=== PATIENT | female | born 1970 | race American Indian/Alaskan Native ===

== ENCOUNTER 2017-03-12 20:34 | Emergency (ER) | payer OTHER ==
[2017-03-12] MEDS ORDERED: TORADOL IM ONE (21:21)
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
[2017-03-12 23:32] VITALS: BP 162/84
== END 2017-03-12 22:57 | disposition home or self-care (01) ==
LOC: ED 20:34
DX: S16.1XXA Strain of muscle, fascia and tendon at neck level, initial encounter (principal); F17.200 Nicotine dependence, unspecified, uncomplicated; I10 Essential (primary) hypertension; V43.61XA Car passenger injured in collision with sport utility vehicle in traffic accident, initial encounter; Y93.89 Activity, other specified; Y99.8 Other external cause status; Y92.488 Other paved roadways as the place of occurrence of the external cause
CPT/HCPCS: 72125; 96372; 99284; J1885

== ENCOUNTER 2017-04-27 17:49 | Emergency (ER) | payer OTHER ==
[2017-04-27] MEDS ORDERED: NACL 0.9% 1000 ML 1,000 ML IV ONE (19:03)
[2017-04-27] MEDS ORDERED: ATIVAN IV ONE (19:37)
[2017-04-27 19:38] LABS: Basophils % (Auto) 0.6 % (0.0-1.8); Eosinophils % (Auto) 2.3 % (0.0-4.3); Hematocrit 34.6 % (30.3-42.9); Hemoglobin 11.3 gm/dl (10.1-14.3); Mean Corpuscular HGB Conc 33 % (30-34); Mean Corpuscular Hemoglobin 24 pg (28-32); Mean Corpuscular Volume 74 fl (79-97); Platelet Count 313 K/mm3 (140-440); Red Blood Count 4.69 M/mm3 (3.65-5.03); White Blood Count 6.9 K/mm3 (4.5-11.0)
[2017-04-27 20:01] LABS: Alanine Aminotransferase 11 units/L (7-56); Albumin 4.4 g/dL (3.9-5); Albumin/Globulin Ratio 1.4 %; Alkaline Phosphatase 61 units/L (35-129); Anion Gap 20 mmol/L; BUN/Creatinine Ratio 21.42; Blood Urea Nitrogen 15 mg/dL (7-17); Calcium 9.6 mg/dL (8.4-10.2); Carbon Dioxide 23 mmol/L (22-30); Chloride 102.7 mmol/L (98-107); Glucose 99 mg/dL (65-100); Potassium 4.4 mmol/L (3.6-5.0); Sodium 141 mmol/L (137-145); Total Protein 7.6 g/dL (6.3-8.2)
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
[2017-04-27 21:14] LABS: Urine Drugs of Abuse Note Disclamer
--- NOTE | 2017-04-27 21:31 | Cat Scan Report ---
FINAL REPORT EXAM: CT HEAD/BRAIN WO CON HISTORY: altered mental status TECHNIQUE: CT head without contrast PRIORS: None. FINDINGS: No acute intra-axial or extra-axial hemorrhage is identified. There is no evidence of midline shift or mass effect. The ventricles and sulci are within normal limits. Chase-white matter differentiation is intact. No acute parenchymal abnormalities seen. Bony calvarium is grossly intact. Visualized portions of the mastoids and paranasal sinuses are unremarkable. IMPRESSION: Negative CT head
--- NOTE | 2017-04-27 21:32 | Cat Scan Report ---
FINAL REPORT EXAM: CT CERVICAL SPINE WO CON HISTORY: syncope global weakness TECHNIQUE: CT cervical spine with reconstructions PRIORS: None. FINDINGS: Vertebral bodies demonstrate normal height and alignment. The disk spaces are within normal limits. The facet joints demonstrate normal alignment. The spinous processes are intact. Craniocervical junction is unremarkable. C1 and C2 are intact. IMPRESSION: Negative CT cervical spine. No acute abnormality seen.
[2017-04-27 21:38] LABS: Bilirubin,Urine NEG (Negative); Blood,Urine NEG (Negative); Ketones,Urine NEG (Negative); Leukocyte Esterase,Urine NEG (Negative); Mucus,Urine 3+ /HPF; Nitrite,Urine NEG (Negative); Protein,Urine <15 mg/dL mg/dL (Negative); Urobilinogen,Urine < 2.0 mg/dL (<2.0)
[2017-04-27] MEDS ORDERED: REGLAN IV ONE (22:29)
[2017-04-27 23:54] VITALS: BP 145/95
== END 2017-04-28 01:13 | disposition short-term general hospital (02) ==
LOC: ED 17:49
DX: R56.9 Unspecified convulsions (principal); R41.82 Altered mental status, unspecified
CPT/HCPCS: 36415; 70450; 72125; 80053; 80307; 81001; 82140; 82550; 84443; 84484; 84702; 85025; 93005; 93010; 96361; 96374; 96375; 99285; G0480; J2060; J2765; J7030; 80320

== ENCOUNTER 2018-10-23 14:53 | Inpatient (IN) | payer OTHER, SELFPAY ==
[2018-10-23] MEDS ORDERED: DILAUDID IV ONE ×2 (15:40→19:33)
[2018-10-23] MEDS ORDERED: PEPCID IV ONE (15:40)
[2018-10-23] MEDS ORDERED: TORADOL IV ONE (15:40)
[2018-10-23] MEDS ORDERED: ZOFRAN IV ONE ×2 (15:40→21:51)
[2018-10-23] MEDS ORDERED: NACL 0.9% 1000 ML 1,000 ML IV ONE ×4 (15:42→21:51)
[2018-10-23 16:18] LABS: Hematocrit 33.2 % (30.3-42.9); Hemoglobin 10.7 gm/dl (10.1-14.3); Mean Corpuscular HGB Conc 32 % (30-34); Mean Corpuscular Volume 71 fl (79-97); Platelet Count 305 K/mm3 (140-440)
[2018-10-23 16:41] LABS: Bacteria,Urine 1+ /HPF (Negative); Bilirubin,Urine NEG (Negative); Blood,Urine SM (Negative); Color,Urine Amber (Yellow); Mucus,Urine FEW /HPF
[2018-10-23 16:44] LABS: Hemolysis Index 1
[2018-10-23 16:44] LABS: Protein,Urine >500 mg/dL (Negative); WBC,Urine > 182.0 /HPF (0.0-6.0)
[2018-10-23] MEDS ORDERED: ROCEPHIN/NS 1 GM/50 ML 1 GM/50 ML BAG IV ONE (16:57)
--- NOTE | 2018-10-23 17:01 | Emergency Department Report ---
ED Abdominal Pain HPI - General Chief Complaint: Abdominal Pain Stated Complaint: ABD PAIN Time Seen by Provider: 10/23/18 15:11 Source: patient Mode of arrival: Ambulatory Limitations: No Limitations - History of Present Illness Initial Comments: 48-year-old female with a past medical history of previous hypertension in the past not currently on meds and previous ovarian cyst surgery presents to the Hospital complaining of right-sided abdominal pain 2 days. Pain is at the right upper quadrant, constant, and stabbing in nature and rated 10/10 inte nsity. Pain is Worse to palpation without alleviating factors. Positive associated nausea and vomiting without reports of diarrhea, hematemesis, hematochezia, melena, or fever. Patient complains of some abdominal pressure when she urinates but no dysuria. Severity scale (0 -10): 10 - Related Data Home Medications Medication Instructions Recorded Confirmed Last Taken Ibuprofen [Motrin 800 MG tab] 800 mg PO QDAY PRN 04/27/17 04/27/17 Unknown Previous Rx's Medication Instructions Recorded Last Taken Type HYDROcodone/APAP 5-325 [[place] 1 each PO Q6HR PRN #8 tablet 03/12/17 Unknown Rx 5-325 mg TAB] Allergies Allergy/AdvReac Type Severity Reaction Status Date / Time No Known Allergies Allergy Verified 12/07/14 20:54 ED Review of Systems ROS: Stated complaint: ABD PAIN Other details as noted in HPI Comment: All other systems reviewed and negative ED Past Medical Hx - Past Medical History Hx Hypertension: Yes Hx Kidney Stones: Yes - Surgical History Additional Surgical History: LEFT OVARIAN CYST SURGERY - Social History Smoking Status: Current Some Day Smoker Substance Use Type: Alcohol - Medications Home Medications: Home Medications Medication Instructions Recorded Confirmed Last Taken Type HYDROcodone/APAP 5-325 [[place] 1 each PO Q6HR PRN #8 tablet 03/12/17 04/27/17 Unknown Rx 5-325 mg TAB] Ibuprofen [Motrin 800 MG tab] 800 mg PO QDAY PRN 04/27/17 04/27/17 Unknown History ED Physical Exam - General Limitations: No Limitations - Other Other exam information: General: Moderate distress secondary to pain Head exam: Atraumatic, normocephalic Eyes exam: Normal appearance, nonicteric sclera ENT: Moist mucous membrane Neck exam: Normal inspection, full range of motion, no meningismus nontender Respiratory exam: Clear to auscultation bilateral, no wheezes, rales, crackles Cardiovascular: Tachycardia regular rhythm Abdomen: Soft, nondistended, right upper quadrant tenderness, with normal bowel sounds, no rebound, or guarding Extremity: Full range of motion normal inspection no deformity Back: Normal Inspection, full range of motion, no tenderness Neurologic: Alert, oriented x3, cranial nerves intact, no motor or sensory deficit Psychiatric: Distress secondary to pain Skin: Warm, dry, intact ED Course Vital Signs 10/23/18 10/23/18 10/23/18 15:15 15:21 16:05 Temperature 98.1 F Pulse Rate 121 H Respiratory 14 19 Rate Blood Pressure 127/78 Blood Pressure 127/78 [Right] O2 Sat by Pulse 99 99 Oximetry 10/23/18 10/23/18 10/23/18 16:06 16:35 16:36 Temperature Pulse Rate Respiratory 19 16 16 Rate Blood Pressure Blood Pressure [Right] O2 Sat by Pulse Oximetry ED Medical Decision Making - Lab Data Result diagrams: 10/23/18 15:55 10/23/18 15:55 Lab Results 10/23/18 10/23/18 10/23/18 Range/Units 15:55 15:55 15:55 WBC 18.9 H (4.5-11.0) K/mm3 RBC 4.70 (3.65-5.03) M/mm3 Hgb 10.7 (10.1-14.3) gm/dl Hct 33.2 (30.3-42.9) % MCV 71 L (79-97) fl MCH 23 L (28-32) pg MCHC 32 (30-34) % RDW 20.0 H (13.2-15.2) % Plt Count 305 (140-440) K/mm3 Add Manual Diff Complete Total Counted 100 Seg Neutrophils % Meeting Facilitator Seg Neuts % (Manual) 77.0 H (40.0-70.0) % Band Neutrophils % 15.0 % Lymphocytes % (Manual) 2.0 L (13.4-35.0) % Reactive Lymphs % (Man) 0 % Monocytes % (Manual) 5.0 (0.0-7.3) % Eosinophils % (Manual) 1.0 (0.0-4.3) % Basophils % (Manual) 0 (0.0-1.8) % Metamyelocytes % 0 % Myelocytes % 0 % Promyelocytes % 0 % Blast Cells % 0 % Nucleated RBC % Not Reportable Seg Neutrophils # Man 14.6 H (1.8-7.7) K/mm3 Band Neutrophils # 2.8 K/mm3 Lymphocytes # (Manual) 0.4 L (1.2-5.4) K/mm3 Abs React Lymphs (Man) 0.0 K/mm3 Monocytes # (Manual) 0.9 H (0.0-0.8) K/mm3 Eosinophils # (Manual) 0.2 (0.0-0.4) K/mm3 Basophils # (Manual) 0.0 (0.0-0.1) K/mm3 Metamyelocytes # 0.0 K/mm3 Myelocytes # 0.0 K/mm3 Promyelocytes # 0.0 K/mm3 Blast Cells # 0.0 K/mm3 WBC Morphology Not Reportable Hypersegmented Neuts Not Reportable Hyposegmented Neuts Not Reportable Hypogranular Neuts Not Reportable Smudge Cells Not Reportable Toxic Granulation Not Reportable Toxic Vacuolation Not Reportable Dohle Bodies Not Reportable Pelger-Huet Anomaly Not Reportable Kareen Rods Not Reportable Platelet Estimate Appears normal Clumped Platelets Not Reportable Plt Clumps, EDTA Not Reportable Large Platelets Few Giant Platelets Not Reportable Platelet Satelliting Not Reportable Plt Morphology Comment Not Reportable RBC Morphology Not Reportable Dimorphic RBCs Not Reportable Polychromasia Not Reportable Hypochromasia 1+ Poikilocytosis Not Reportable Anisocytosis 1+ Microcytosis 1+ Macrocytosis Not Reportable Spherocytes Not Reportable Pappenheimer Bodies Not Reportable Sickle Cells Not Reportable Target Cells Not Reportable Tear Drop Cells Not Reportable Ovalocytes Few Helmet Cells Not Reportable Sepulveda-Nolic Bodies Not Reportable [place] Rings Not Reportable [place] Cells Not Reportable Bite Cells Not Reportable Crenated Cell Not Reportable Elliptocytes Not Reportable Acanthocytes (Spur) Not Reportable Rouleaux Not Reportable Hemoglobin C Crystals Not Reportable Schistocytes Not Reportable Malaria parasites Not Reportable Arian Bodies Not Reportable Hem Pathologist Commnt No VBG pH (7.320-7.420) Sodium 137 (137-145) mmol/L Potassium 5.4 H (3.6-5.0) mmol/L Chloride 99.0 (98-107) mmol/L Carbon Dioxide 17 L (22-30) mmol/L Anion Gap 26 mmol/L BUN 14 (7-17) mg/dL Creatinine < 0.2 L (0.7-1.2) mg/dL Estimated GFR > 60 ml/min BUN/Creatinine Ratio 70 % Glucose 159 H (65-100) mg/dL Lactic Acid (0.7-2.0) mmol/L Calcium 8.7 (8.4-10.2) mg/dL Total Bilirubin < 0.20 (0.1-1.2) mg/dL AST 62 H (5-40) units/L ALT 21 (7-56) units/L Alkaline Phosphatase 90 (35-129) units/L Total Protein 7.8 (6.3-8.2) g/dL Albumin 3.2 L (3.9-5) g/dL Albumin/Globulin Ratio 0.7 % Lipase 3 L (13-60) units/L HCG, Qual Negative (Negative) Urine Color (Yellow) Urine Turbidity (Clear) Urine pH (5.0-7.0) Ur Specific [place] (1.003-1.030) Urine Protein (Negative) mg/dL Urine Glucose (UA) (Negative) mg/dL Urine Ketones (Negative) mg/dL Urine Blood (Negative) Urine Nitrite (Negative) Urine Bilirubin (Negative) Urine Urobilinogen (<2.0) mg/dL Ur Leukocyte Esterase (Negative) Urine WBC (Auto) (0.0-6.0) /HPF Urine RBC (Auto) (0.0-6.0) /HPF U Epithel Cells (Auto) (0-13.0) /HPF Urine Bacteria (Auto) (Negative) /HPF Urine WBC Clumps /HPF Ur Transition Epith Cell /HPF Urine Mucus /HPF 10/23/18 10/23/18 10/23/18 Range/Units 16:13 18:23 18:23 WBC (4.5-11.0) K/mm3 RBC (3.65-5.03) M/mm3 Hgb (10.1-14.3) gm/dl Hct (30.3-42.9) % MCV (79-97) fl MCH (28-32) pg MCHC (30-34) % RDW (13.2-15.2) % Plt Count (140-440) K/mm3 Add Manual Diff Total Counted Seg Neutrophils % Seg Neuts % (Manual) (40.0-70.0) % Band Neutrophils % % Lymphocytes % (Manual) (13.4-35.0) % Reactive Lymphs % (Man) % Monocytes % (Manual) (0.0-7.3) % Eosinophils % (Manual) (0.0-4.3) % Basophils % (Manual) (0.0-1.8) % Metamyelocytes % % Myelocytes % % Promyelocytes % % Blast Cells % % Nucleated RBC % Seg Neutrophils # Man (1.8-7.7) K/mm3 Band Neutrophils # K/mm3 Lymphocytes # (Manual) (1.2-5.4) K/mm3 Abs React Lymphs (Man) K/mm3 Monocytes # (Manual) (0.0-0.8) K/mm3 Eosinophils # (Manual) (0.0-0.4) K/mm3 Basophils # (Manual) (0.0-0.1) K/mm3 Metamyelocytes # K/mm3 Myelocytes # K/mm3 Promyelocytes # K/mm3 Blast Cells # K/mm3 WBC Morphology Hypersegmented Neuts Hyposegmented Neuts Hypogranular Neuts Smudge Cells Toxic Granulation Toxic Vacuolation Dohle Bodies Pelger-Huet Anomaly Kareen Rods Platelet Estimate Clumped Platelets Plt Clumps, EDTA Large Platelets Giant Platelets Platelet Satelliting Plt Morphology Comment RBC Morphology Dimorphic RBCs Polychromasia Hypochromasia Poikilocytosis Anisocytosis Microcytosis Macrocytosis Spherocytes Pappenheimer Bodies Sickle Cells Target Cells Tear Drop Cells Ovalocytes Helmet Cells Sepulveda-Nolic Bodies [place] Rings [place] Cells Bite Cells Crenated Cell Elliptocytes Acanthocytes (Spur) Rouleaux Hemoglobin C Crystals Schistocytes Malaria parasites Arian Bodies Hem Pathologist Commnt VBG pH 7.341 (7.320-7.420) Sodium (137-145) mmol/L Potassium (3.6-5.0) mmol/L Chloride (98-107) mmol/L Carbon Dioxide (22-30) mmol/L Anion Gap mmol/L BUN (7-17) mg/dL Creatinine (0.7-1.2) mg/dL Estimated GFR ml/min BUN/Creatinine Ratio % Glucose (65-100) mg/dL Lactic Acid 1.40 (0.7-2.0) mmol/L Calcium (8.4-10.2) mg/dL Total Bilirubin (0.1-1.2) mg/dL AST (5-40) units/L ALT (7-56) units/L Alkaline Phosphatase (35-129) units/L Total Protein (6.3-8.2) g/dL Albumin (3.9-5) g/dL Albumin/Globulin Ratio % Lipase (13-60) units/L HCG, Qual (Negative) Urine Color [place] (Yellow) Urine Turbidity Cloudy (Clear) Urine pH 5.0 (5.0-7.0) Ur Specific [place] 1.013 (1.003-1.030) Urine Protein >500 (Negative) mg/dL Urine Glucose (UA) Neg (Negative) mg/dL Urine Ketones Tr (Negative) mg/dL Urine Blood Sm (Negative) Urine Nitrite Neg (Negative) Urine Bilirubin Neg (Negative) Urine Urobilinogen 2.0 (<2.0) mg/dL Ur Leukocyte Esterase Lg (Negative) Urine WBC (Auto) > 182.0 H (0.0-6.0) /HPF Urine RBC (Auto) 49.0 (0.0-6.0) /HPF U Epithel Cells (Auto) 8.0 (0-13.0) /HPF Urine Bacteria (Auto) 1+ (Negative) /HPF Urine WBC Clumps 3+ /HPF Ur Transition Epith Cell 6 /HPF Urine Mucus Few /HPF - EKG Data -: EKG Interpreted by Ri EKG shows normal: sinus rhythm, axis (qrs 20), QRS complexes (qrsd 85), ST-T waves (no stemi/t inv) Rate: tachycardia (110) - Radiology Data Radiology results: report reviewed CT abdomen and pelvis IV contrast: Possible acute bilateral pyelonephritis. Mild colonic diverticulosis - Medical Decision Making Diagnosis is bilateral pyelonephritis with sepsis 3 L of normal saline ordered IV Rocephin Dilaudid and Toradol for pain with improvement Venous pH is normal with an anion gap in low bicarbonate with leukocytosis. lactic acid normal hr 110 after pain meds and 1.5 L of NS Patient be admitted for further treatment cultures pending - Differential Diagnosis cholecystitis, renal colic, UTI, pyelonephritis, appendicitis, gastritis Critical Care Time: No Critical care attestation.: If time is entered above; I have spent that time in minutes in the direct care of this critically ill patient, excluding procedure time. ED Disposition Clinical Impression: Pyelonephritis, Sepsis Disposition: OP ADMIT IP TO THIS HOSP Is pt being admited?: Yes Condition: Stable Time of Disposition: 18:53 (dr francois/hosp)
[2018-10-23 17:09] LABS: Anisocytosis 1+; Band Neutrophils # (Manual) 2.8 K/mm3; Basophils % (Manual) 0 % (0.0-1.8); Total Cells Counted 100
[2018-10-23 17:10] LABS: Hypochromasia 1+; Large Platelets Few; Ovalocytes Few
[2018-10-23 18:11] LABS: Alanine Aminotransferase 21 units/L (7-56); Albumin 3.2 g/dL (3.9-5); BUN/Creatinine Ratio 70; Blood Urea Nitrogen 14 mg/dL (7-17); Calcium 8.7 mg/dL (8.4-10.2)
--- NOTE | 2018-10-23 18:18 | Cat Scan Report ---
FINAL REPORT PROCEDURE: CT abdomen and pelvis with contrast. TECHNIQUE: Computerized axial tomography of the abdomen and pelvis was performed after the IV inject ion of iodinated nonionic contrast. HISTORY: Right upper quadrant abdominal pain, nausea and vomiting. COMPARISON: No prior studies are available for comparison. FINDINGS: There is minimal subsegmental atelectasis in the lingula. There are no pleural effusions. The heart s ize is normal. The liver, pancreas and spleen appear normal. The gallbladder is present. There is no biliary dilatation. The adrenal glands are not enlarged. Both kidneys appear mildly enlarged. There i s some inhomogeneous enhancement of the renal parenchyma bilaterally. This is more pronounced in the right kidney. There is mild infiltration of the fat adjacent to both kidneys. The findings could repr esent acute pyelonephritis. Clinical correlation is recommended. There is a small cyst in the lower p ole of the left kidney. The abdominal aorta has a normal caliber. There is no retroperitoneal adenopa thy. The unopacified gastrointestinal tract is unremarkable. A normal appendix is visible. There are a few diverticula near the splenic flexure and in the descending colon. There are a few diverticula i n the sigmoid colon. The bladder, uterus and adnexal regions appear normal. The regional skeleton satya ears intact. IMPRESSION: Possible acute bilateral pyelonephritis. Clinical correlation recommended. Mild colonic diverticulosi s.
[2018-10-23] MEDS ORDERED: NACL 0.9% 1000 ML 1,000 ML ONE ×2 (19:39→21:47)
[2018-10-23] MEDS ORDERED: DILAUDID ONE (19:39)
[2018-10-23] MEDS ORDERED: MORPHINE ONE (21:47)
[2018-10-23] MEDS ORDERED: ZOFRAN ONE (21:47)
--- NOTE | 2018-10-23 21:50 | History and Physical Report ---
History of Present Illness Date of examination: 10/23/18 Date of admission: 10/23/18 18:50 History of present illness: 48-year-old woman with a history of hypertension is emergency room with com plaints of right flank pain radiating to the anterior abdomen that started 2 days ago. She described the pain as dull, sharp, constant, intensity 8/10, relieved with IV morphine. I also admits to fever chills, dysuria, frequency and foul-smelling urine. She is noncompliant with medications Review of systems Constitutional: no weight loss, chills, fever Ears, eyes, nose, mouth and throat: no nasal congestion, no nasal discharge, no sinus pressure, no vision change, no red eye. Neck: No neck pain or rigidity. Cardiovascular: no palpitations, chest pain Respiratory: no cough, shortness of breath Gastrointestinal: no hematochezia, abdominal pain Genitourinary : + frequency , no hematuria Musculoskeletal: no joint swelling or muscle ache Integumentary: no rash, no pruritis Neurological: no parathesias, no focal weakness Endocrine: no cold or heat intolerance, no polyuria or polydipsia Hematologic/Lymphatic: no easy bruising, no easy bleeding, no gland swelling Allergic/Immunologic: no urticaria, no angioedema. PAST MEDICAL HISTORY: hypertension PAST SURGICAL HISTORY: Cyst removed from left ovary SOCIAL HISTORY: Denies alcohol, drugs, tobacco FAMILY HISTORY: Hypertension Medications and Allergies Allergies Allergy/AdvReac Type Severity Reaction Status Date / Time No Known Allergies Allergy Verified 12/07/14 20:54 Home Medications Medication Instructions Recorded Confirmed Last Taken Type HYDROcodone/APAP 5-325 [[place] 1 each PO Q6HR PRN #8 tablet 03/12/17 04/27/17 Unknown Rx 5-325 mg TAB] Ibuprofen [Motrin 800 MG tab] 800 mg PO QDAY PRN 04/27/17 04/27/17 Unknown History Exam - Physical Exam Narrative exam: General Apperance: The patient lying in bed, breathing comfortable HEENT: Normocephalic, atraumatic. Pupils equally round and reactive to light, EOMI, no sclericterus or JVD or thyromegaly or nodule. , no carotid bruit, mucous membranes moist, no exudate or erythema Heart: S1-S2, regular is rhythm Lungs: Clear to auscultation bilaterally, breathing comfortable Abdomen: Positive bowel sounds, soft, nontender, nondistended, no organomegaly Extremities: No edema cyanosis clubbing Skin: no rash, nodule, warm and dry Neuro: cranial nerves 2-12 intact, speech is fluent, motor/sensory intact - Constitutional Vitals: Temp Pulse Resp BP Pulse Ox 98.1 F 109 H 14 115/74 100 10/23/18 15:21 10/23/18 19:34 10/23/18 19:35 10/23/18 19:34 10/23/18 19:34 Results - Labs CBC & Chem 7: 10/23/18 15:55 10/23/18 15:55 Labs: Abnormal lab results 10/23/18 10/23/18 10/23/18 Range/Units 15:55 15:55 16:13 WBC 18.9 H (4.5-11.0) K/mm3 MCV 71 L (79-97) fl MCH 23 L (28-32) pg RDW 20.0 H (13.2-15.2) % Seg Neuts % (Manual) 77.0 H (40.0-70.0) % Lymphocytes % (Manual) 2.0 L (13.4-35.0) % Seg Neutrophils # Man 14.6 H (1.8-7.7) K/mm3 Lymphocytes # (Manual) 0.4 L (1.2-5.4) K/mm3 Monocytes # (Manual) 0.9 H (0.0-0.8) K/mm3 Potassium 5.4 H (3.6-5.0) mmol/L Carbon Dioxide 17 L (22-30) mmol/L Creatinine < 0.2 L (0.7-1.2) mg/dL Glucose 159 H (65-100) mg/dL AST 62 H (5-40) units/L Albumin 3.2 L (3.9-5) g/dL Lipase 3 L (13-60) units/L Urine WBC (Auto) > 182.0 H (0.0-6.0) /HPF - Imaging and Cardiology CT scan - abdomen: report reviewed CT scan - pelvis: report reviewed Assessment and Plan Assessment Sepsis Bilateral pyelonephritis Hyperkalemia Plan Admit to medicine Start IV fluid, IV Rocephin, follow cultures Give Kayexalate Start IV morphine, DVT prophylaxis
[2018-10-23] MEDS ORDERED: MORPHINE IV ONE (21:51)
[2018-10-23] MEDS ORDERED: KIONEX PO ONE (22:16)
[2018-10-23] MEDS ORDERED: SODIUM CHLORIDE FLUSH SYRINGE 10 ML IV PRN (22:17)
[2018-10-23] MEDS ORDERED: MORPHINE IV PRN (22:17)
[2018-10-24] MEDS ORDERED: KIONEX ONE (00:15)
[2018-10-24] MEDS ORDERED: NACL 0.9% 1000 ML 1,000 ML ONE (00:16)
[2018-10-24] MEDS: NACL 0.9% 1000 ML 1,000 ML IV SCH ×2 (00:20→01:23)
[2018-10-24 05:48] LABS: Basophils % (Auto) 0.1 % (0.0-1.8); Eosinophils # (Auto) 0.1 K/mm3 (0.0-0.4); Eosinophils % (Auto) 0.4 % (0.0-4.3); Hematocrit 28.7 % (30.3-42.9); Hemoglobin 9.1 gm/dl (10.1-14.3); Lymphocytes # (Auto) 0.5 K/mm3 (1.2-5.4); Lymphocytes % (Auto) 3.1 % (13.4-35.0); Mean Corpuscular HGB Conc 32 % (30-34); Mean Corpuscular Volume 72 fl (79-97); Monocytes # (Auto) 1.1 K/mm3 (0.0-0.8); Monocytes % (Auto) 6.7 % (0.0-7.3); Platelet Count 200 K/mm3 (140-440); Red Cell Distribution Width 19.8 % (13.2-15.2)
[2018-10-24 06:08] LABS: Calcium 7.2 mg/dL (8.4-10.2)
[2018-10-24] MEDS ORDERED: PERCOCET 5/325 PO PRN (07:35)
[2018-10-24] MEDS: ZOFRAN IV PRN ×2 (07:42→14:03)
[2018-10-24] MEDS: ROCEPHIN/NS 1 GM/50 ML 1 GM/50 ML BAG IV SCH (09:55)
[2018-10-24] MEDS: SODIUM CHLORIDE FLUSH SYRINGE 10 ML IV SCH ×2 (09:56→23:21)
[2018-10-24] MEDS: PERCOCET 5/325 PO PRN ×2 (14:02→18:05)
[2018-10-24] MEDS ORDERED: VASELINE LIP THERAPY TP PRN (15:00)
--- NOTE | 2018-10-24 18:56 | Progress Note ---
Assessment and Plan Assessment and plan: --Acute bilateral pyelonephritis; IV fluids, IV antibiotics, follow cultures, supportive care --Hyperkalemia; corrected, closely monitor electrolytes --Sepsis secondary to UTI/pyelonephritis; continue current management --Leukocytosis secondary to sepsis, closely monitor --Moderate malnutrition/hypoalbuminemia; supportive care with nutrition supplements --Morbid obesity; BMI 41.9 Patient advised weight reduction when medically stable --DVT prophylaxis; Lovenox --Ongoing tobacco use; smoking cessation, nicotine patch as needed Continue current management Possible discharge in 1-2 days if stable Multiple family members at the bedside Plan of care is reviewed with patient and the family members as well as the nurse History Interval history: Patient seen and evaluated this morning medical records reviewed Admitted with bilateral pyelonephritis On IV antibiotics and supportive care Patient complains of some flank pain Alert awake Oriented 3 Vital signs as reviewed Hospitalist Physical - Constitutional Vitals: Temp Pulse Resp BP Pulse Ox 100.3 F H 110 H 24 137/76 97 10/24/18 17:49 10/24/18 06:29 10/24/18 17:49 10/24/18 17:49 10/24/18 06:29 General appearance: Present: no acute distress, well-nourished, obese - EENT Eyes: Present: PERRL, EOM intact - Neck Neck: Present: supple, normal ROM - Respiratory Respiratory effort: normal Respiratory: bilateral: diminished, negative: rales, rhonchi, wheezing - Cardiovascular Rhythm: regular Heart Sounds: Present: S1 & S2 - Extremities Extremities: no ischemia, No edema - Abdominal General gastrointestinal: soft, non-tender, non-distended, normal bowel sounds - Integumentary Integumentary: Present: clear, warm - Psychiatric Psychiatric: appropriate mood/affect, cooperative - Neurologic Neurologic: CNII-XII intact, moves all extremities Results - Labs CBC & Chem 7: 10/24/18 04:36 10/24/18 04:36 Labs: Laboratory Last Values WBC 16.5 K/mm3 (4.5-11.0) H 10/24/18 04:36 RBC 4.00 M/mm3 (3.65-5.03) 10/24/18 04:36 Hgb 9.1 gm/dl (10.1-14.3) L 10/24/18 04:36 Hct 28.7 % (30.3-42.9) L 10/24/18 04:36 MCV 72 fl (79-97) L 10/24/18 04:36 MCH 23 pg (28-32) L 10/24/18 04:36 MCHC 32 % (30-34) 10/24/18 04:36 RDW 19.8 % (13.2-15.2) H 10/24/18 04:36 Plt Count 200 K/mm3 (140-440) 10/24/18 04:36 Lymph % (Auto) 3.1 % (13.4-35.0) L 10/24/18 04:36 [place] % (Auto) 6.7 % (0.0-7.3) 10/24/18 04:36 Eos % (Auto) 0.4 % (0.0-4.3) 10/24/18 04:36 Baso % (Auto) 0.1 % (0.0-1.8) 10/24/18 04:36 Lymph # 0.5 K/mm3 (1.2-5.4) L 10/24/18 04:36 [place] # 1.1 K/mm3 (0.0-0.8) H 10/24/18 04:36 Eos # 0.1 K/mm3 (0.0-0.4) 10/24/18 04:36 Baso # 0.0 K/mm3 (0.0-0.1) 10/24/18 04:36 Add Manual Diff Complete 10/23/18 15:55 Total Counted 100 10/23/18 15:55 Seg Neutrophils % 89.7 % (40.0-70.0) H 10/24/18 04:36 Seg Neuts % (Manual) 77.0 % (40.0-70.0) H 10/23/18 15:55 Band Neutrophils % 15.0 % 10/23/18 15:55 Lymphocytes % (Manual) 2.0 % (13.4-35.0) L 10/23/18 15:55 Reactive Lymphs % (Man) 0 % 10/23/18 15:55 Monocytes % (Manual) 5.0 % (0.0-7.3) 10/23/18 15:55 Eosinophils % (Manual) 1.0 % (0.0-4.3) 10/23/18 15:55 Basophils % (Manual) 0 % (0.0-1.8) 10/23/18 15:55 Metamyelocytes % 0 % 10/23/18 15:55 Myelocytes % 0 % 10/23/18 15:55 Promyelocytes % 0 % 10/23/18 15:55 Blast Cells % 0 % 10/23/18 15:55 Nucleated RBC % Not Reportable 10/23/18 15:55 Seg Neutrophils # 14.8 K/mm3 (1.8-7.7) H 10/24/18 04:36 Seg Neutrophils # Man 14.6 K/mm3 (1.8-7.7) H 10/23/18 15:55 Band Neutrophils # 2.8 K/mm3 10/23/18 15:55 Lymphocytes # (Manual) 0.4 K/mm3 (1.2-5.4) L 10/23/18 15:55 Abs React Lymphs (Man) 0.0 K/mm3 10/23/18 15:55 Monocytes # (Manual) 0.9 K/mm3 (0.0-0.8) H 10/23/18 15:55 Eosinophils # (Manual) 0.2 K/mm3 (0.0-0.4) 10/23/18 15:55 Basophils # (Manual) 0.0 K/mm3 (0.0-0.1) 10/23/18 15:55 Metamyelocytes # 0.0 K/mm3 10/23/18 15:55 Myelocytes # 0.0 K/mm3 10/23/18 15:55 Promyelocytes # 0.0 K/mm3 10/23/18 15:55 Blast Cells # 0.0 K/mm3 10/23/18 15:55 WBC Morphology Not Reportable 10/23/18 15:55 Hypersegmented Neuts Not Reportable 10/23/18 15:55 Hyposegmented Neuts Not Reportable 10/23/18 15:55 Hypogranular Neuts Not Reportable 10/23/18 15:55 Smudge Cells Not Reportable 10/23/18 15:55 Toxic Granulation Not Reportable 10/23/18 15:55 Toxic Vacuolation Not Reportable 10/23/18 15:55 Dohle Bodies Not Reportable 10/23/18 15:55 Pelger-Huet Anomaly Not Reportable 10/23/18 15:55 Kareen Rods Not Reportable 10/23/18 15:55 Platelet Estimate Appears normal 10/23/18 15:55 Clumped Platelets Not Reportable 10/23/18 15:55 Plt Clumps, EDTA Not Reportable 10/23/18 15:55 Large Platelets Few 10/23/18 15:55 Giant Platelets Not Reportable 10/23/18 15:55 Platelet Satelliting Not Reportable 10/23/18 15:55 Plt Morphology Comment Not Reportable 10/23/18 15:55 RBC Morphology Not Reportable 10/23/18 15:55 Dimorphic RBCs Not Reportable 10/23/18 15:55 Polychromasia Not Reportable 10/23/18 15:55 Hypochromasia 1+ 10/23/18 15:55 Poikilocytosis Not Reportable 10/23/18 15:55 Anisocytosis 1+ 10/23/18 15:55 Microcytosis 1+ 10/23/18 15:55 Macrocytosis Not Reportable 10/23/18 15:55 Spherocytes Not Reportable 10/23/18 15:55 Pappenheimer Bodies Not Reportable 10/23/18 15:55 Sickle Cells Not Reportable 10/23/18 15:55 Target Cells Not Reportable 10/23/18 15:55 Tear Drop Cells Not Reportable 10/23/18 15:55 Ovalocytes Few 10/23/18 15:55 Helmet Cells Not Reportable 10/23/18 15:55 Sepulveda-[place] Bodies Not Reportable 10/23/18 15:55 [place] Rings Not Reportable 10/23/18 15:55 [place] Cells Not Reportable 10/23/18 15:55 Bite Cells Not Reportable 10/23/18 15:55 Crenated Cell Not Reportable 10/23/18 15:55 Elliptocytes Not Reportable 10/23/18 15:55 Acanthocytes (Spur) Not Reportable 10/23/18 15:55 Rouleaux Not Reportable 10/23/18 15:55 Hemoglobin C Crystals Not Reportable 10/23/18 15:55 Schistocytes Not Reportable 10/23/18 15:55 Malaria parasites Not Reportable 10/23/18 15:55 Arian Bodies Not Reportable 10/23/18 15:55 Hem Pathologist Commnt No 10/23/18 15:55 VBG pH 7.341 (7.320-7.420) 10/23/18 18:23 Sodium 143 mmol/L (137-145) 10/24/18 04:36 Potassium 4.0 mmol/L (3.6-5.0) D 10/24/18 04:36 Chloride 109.6 mmol/L (98-107) H 10/24/18 04:36 Carbon Dioxide 21 mmol/L (22-30) L 10/24/18 04:36 Anion Gap 16 mmol/L 10/24/18 04:36 BUN 13 mg/dL (7-17) 10/24/18 04:36 Creatinine 1.2 mg/dL (0.7-1.2) D 10/24/18 04:36 Estimated GFR 58 ml/min 10/24/18 04:36 BUN/Creatinine Ratio 11 % 10/24/18 04:36 Glucose 182 mg/dL (65-100) H 10/24/18 04:36 Lactic Acid 1.40 mmol/L (0.7-2.0) 10/23/18 18:23 Calcium 7.2 mg/dL (8.4-10.2) L D 10/24/18 04:36 Total Bilirubin < 0.20 mg/dL (0.1-1.2) 10/23/18 15:55 AST 62 units/L (5-40) H 10/23/18 15:55 ALT 21 units/L (7-56) 10/23/18 15:55 Alkaline Phosphatase 90 units/L (35-129) 10/23/18 15:55 Total Protein 7.8 g/dL (6.3-8.2) 10/23/18 15:55 Albumin 3.2 g/dL (3.9-5) L 10/23/18 15:55 Albumin/Globulin Ratio 0.7 % 10/23/18 15:55 Lipase 3 units/L (13-60) L 10/23/18 15:55 HCG, Qual Negative (Negative) 10/23/18 15:55 Urine Color [place] (Yellow) 10/23/18 16:13 Urine Turbidity Cloudy (Clear) 10/23/18 16:13 Urine pH 5.0 (5.0-7.0) 10/23/18 16:13 Ur Specific [place] 1.013 (1.003-1.030) 10/23/18 16:13 Urine Protein >500 mg/dL (Negative) 10/23/18 16:13 Urine Glucose (UA) Neg mg/dL (Negative) 10/23/18 16:13 Urine Ketones Tr mg/dL (Negative) 10/23/18 16:13 Urine Blood Sm (Negative) 10/23/18 16:13 Urine Nitrite Neg (Negative) 10/23/18 16:13 Urine Bilirubin Neg (Negative) 10/23/18 16:13 Urine Urobilinogen 2.0 mg/dL (<2.0) 10/23/18 16:13 Ur Leukocyte Esterase Lg (Negative) 10/23/18 16:13 Urine WBC (Auto) > 182.0 /HPF (0.0-6.0) H 10/23/18 16:13 Urine RBC (Auto) 49.0 /HPF (0.0-6.0) 10/23/18 16:13 U Epithel Cells (Auto) 8.0 /HPF (0-13.0) 10/23/18 16:13 Urine Bacteria (Auto) 1+ /HPF (Negative) 10/23/18 16:13 Urine WBC Clumps 3+ /HPF 10/23/18 16:13 Ur Transition Epith Cell 6 /HPF 10/23/18 16:13 Urine Mucus Few /HPF 10/23/18 16:13
[2018-10-24] MEDS ORDERED: BENADRYL IV ONE (20:33)
[2018-10-24] MEDS ORDERED: DILAUDID IV ONE (20:33)
[2018-10-25] MEDS: TYLENOL PO PRN ×3 (00:34→17:59)
[2018-10-25] MEDS ORDERED: DILAUDID IV ONE (01:45)
[2018-10-25] MEDS: NACL 0.9% 1000 ML 1,000 ML IV SCH ×3 (01:48→17:28)
[2018-10-25] MEDS ORDERED: DILAUDID IM PRN (08:14)
[2018-10-25] MEDS: SODIUM CHLORIDE FLUSH SYRINGE 10 ML IV SCH ×2 (10:59→22:29)
[2018-10-25] MEDS: ROCEPHIN/NS 1 GM/50 ML 1 GM/50 ML BAG IV SCH (10:59)
[2018-10-25] MEDS: DILAUDID IV PRN ×2 (13:43→18:48)
--- NOTE | 2018-10-25 19:02 | Progress Note ---
Assessment and Plan Assessment and plan: --Acute bilateral pyelonephritis; IV fluids, IV antibiotics, follow cultures, supportive care --Hyperkalemia; corrected, closely monitor electrolytes --Sepsis secondary to UTI/pyelonephritis; gram-negative positive urine cultures continue empiric antibiotics IV fluids and pain medications --Leukocytosis secondary to sepsis, closely monitor --Moderate malnutrition/hypoalbuminemia; supportive care with nutrition supplements --Morbid obesity; BMI 41.9 Patient advised weight reduction when medically stable --DVT prophylaxis; Lovenox --Ongoing tobacco use; smoking cessation, nicotine patch as needed Continue current management, Possible discharge in 1-2 days if stable Multiple family members at the bedside Plan of care is reviewed with patient and the family members as well as the romy se History Interval history: Patient seen and examined medical records reviewed Feels better no new complaints Plan cultures positive for gram-negative rods Vital signs noted Hospitalist Physical - Constitutional Vitals: Temp Pulse Resp BP Pulse Ox 102.8 F H 127 H 20 163/98 93 10/25/18 17:41 10/25/18 17:41 10/25/18 18:48 10/25/18 17:41 10/25/18 17:41 General appearance: Present: no acute distress, well-nourished, obese - EENT Eyes: Present: PERRL, EOM intact - Neck Neck: Present: supple, normal ROM - Respiratory Respiratory effort: normal Respiratory: bilateral: diminished, negative: rales, rhonchi, wheezing - Cardiovascular Rhythm: regular Heart Sounds: Present: S1 & S2 - Extremities Extremities: no ischemia, No edema - Abdominal General gastrointestinal: soft, non-tender, non-distended, normal bowel sounds - Integumentary Integumentary: Present: clear, warm - Psychiatric Psychiatric: appropriate mood/affect, cooperative - Neurologic Neurologic: CNII-XII intact, moves all extremities Results - Labs CBC & Chem 7: 10/24/18 04:36 10/24/18 04:36 Labs: Laboratory Last Values WBC 16.5 K/mm3 (4.5-11.0) H 10/24/18 04:36 RBC 4.00 M/mm3 (3.65-5.03) 10/24/18 04:36 Hgb 9.1 gm/dl (10.1-14.3) L 10/24/18 04:36 Hct 28.7 % (30.3-42.9) L 10/24/18 04:36 MCV 72 fl (79-97) L 10/24/18 04:36 MCH 23 pg (28-32) L 10/24/18 04:36 MCHC 32 % (30-34) 10/24/18 04:36 RDW 19.8 % (13.2-15.2) H 10/24/18 04:36 Plt Count 200 K/mm3 (140-440) 10/24/18 04:36 Lymph % (Auto) 3.1 % (13.4-35.0) L 10/24/18 04:36 [place] % (Auto) 6.7 % (0.0-7.3) 10/24/18 04:36 Eos % (Auto) 0.4 % (0.0-4.3) 10/24/18 04:36 Baso % (Auto) 0.1 % (0.0-1.8) 10/24/18 04:36 Lymph # 0.5 K/mm3 (1.2-5.4) L 10/24/18 04:36 [place] # 1.1 K/mm3 (0.0-0.8) H 10/24/18 04:36 Eos # 0.1 K/mm3 (0.0-0.4) 10/24/18 04:36 Baso # 0.0 K/mm3 (0.0-0.1) 10/24/18 04:36 Add Manual Diff Complete 10/23/18 15:55 Total Counted 100 10/23/18 15:55 Seg Neutrophils % 89.7 % (40.0-70.0) H 10/24/18 04:36 Seg Neuts % (Manual) 77.0 % (40.0-70.0) H 10/23/18 15:55 Band Neutrophils % 15.0 % 10/23/18 15:55 Lymphocytes % (Manual) 2.0 % (13.4-35.0) L 10/23/18 15:55 Reactive Lymphs % (Man) 0 % 10/23/18 15:55 Monocytes % (Manual) 5.0 % (0.0-7.3) 10/23/18 15:55 Eosinophils % (Manual) 1.0 % (0.0-4.3) 10/23/18 15:55 Basophils % (Manual) 0 % (0.0-1.8) 10/23/18 15:55 Metamyelocytes % 0 % 10/23/18 15:55 Myelocytes % 0 % 10/23/18 15:55 Promyelocytes % 0 % 10/23/18 15:55 Blast Cells % 0 % 10/23/18 15:55 Nucleated RBC % Not Reportable 10/23/18 15:55 Seg Neutrophils # 14.8 K/mm3 (1.8-7.7) H 10/24/18 04:36 Seg Neutrophils # Man 14.6 K/mm3 (1.8-7.7) H 10/23/18 15:55 Band Neutrophils # 2.8 K/mm3 10/23/18 15:55 Lymphocytes # (Manual) 0.4 K/mm3 (1.2-5.4) L 10/23/18 15:55 Abs React Lymphs (Man) 0.0 K/mm3 10/23/18 15:55 Monocytes # (Manual) 0.9 K/mm3 (0.0-0.8) H 10/23/18 15:55 Eosinophils # (Manual) 0.2 K/mm3 (0.0-0.4) 10/23/18 15:55 Basophils # (Manual) 0.0 K/mm3 (0.0-0.1) 10/23/18 15:55 Metamyelocytes # 0.0 K/mm3 10/23/18 15:55 Myelocytes # 0.0 K/mm3 10/23/18 15:55 Promyelocytes # 0.0 K/mm3 10/23/18 15:55 Blast Cells # 0.0 K/mm3 10/23/18 15:55 WBC Morphology Not Reportable 10/23/18 15:55 Hypersegmented Neuts Not Reportable 10/23/18 15:55 Hyposegmented Neuts Not Reportable 10/23/18 15:55 Hypogranular Neuts Not Reportable 10/23/18 15:55 Smudge Cells Not Reportable 10/23/18 15:55 Toxic Granulation Not Reportable 10/23/18 15:55 Toxic Vacuolation Not Reportable 10/23/18 15:55 Dohle Bodies Not Reportable 10/23/18 15:55 Pelger-Huet Anomaly Not Reportable 10/23/18 15:55 Kareen Rods Not Reportable 10/23/18 15:55 Platelet Estimate Appears normal 10/23/18 15:55 Clumped Platelets Not Reportable 10/23/18 15:55 Plt Clumps, EDTA Not Reportable 10/23/18 15:55 Large Platelets Few 10/23/18 15:55 Giant Platelets Not Reportable 10/23/18 15:55 Platelet Satelliting Not Reportable 10/23/18 15:55 Plt Morphology Comment Not Reportable 10/23/18 15:55 RBC Morphology Not Reportable 10/23/18 15:55 Dimorphic RBCs Not Reportable 10/23/18 15:55 Polychromasia Not Reportable 10/23/18 15:55 Hypochromasia 1+ 10/23/18 15:55 Poikilocytosis Not Reportable 10/23/18 15:55 Anisocytosis 1+ 10/23/18 15:55 Microcytosis 1+ 10/23/18 15:55 Macrocytosis Not Reportable 10/23/18 15:55 Spherocytes Not Reportable 10/23/18 15:55 Pappenheimer Bodies Not Reportable 10/23/18 15:55 Sickle Cells Not Reportable 10/23/18 15:55 Target Cells Not Reportable 10/23/18 15:55 Tear Drop Cells Not Reportable 10/23/18 15:55 Ovalocytes Few 10/23/18 15:55 Helmet Cells Not Reportable 10/23/18 15:55 Sepulveda-[place] Bodies Not Reportable 10/23/18 15:55 [place] Rings Not Reportable 10/23/18 15:55 [place] Cells Not Reportable 10/23/18 15:55 Bite Cells Not Reportable 10/23/18 15:55 Crenated Cell Not Reportable 10/23/18 15:55 Elliptocytes Not Reportable 10/23/18 15:55 Acanthocytes (Spur) Not Reportable 10/23/18 15:55 Rouleaux Not Reportable 10/23/18 15:55 Hemoglobin C Crystals Not Reportable 10/23/18 15:55 Schistocytes Not Reportable 10/23/18 15:55 Malaria parasites Not Reportable 10/23/18 15:55 Arian Bodies Not Reportable 10/23/18 15:55 Hem Pathologist Commnt No 10/23/18 15:55 VBG pH 7.341 (7.320-7.420) 10/23/18 18:23 Sodium 143 mmol/L (137-145) 10/24/18 04:36 Potassium 4.0 mmol/L (3.6-5.0) D 10/24/18 04:36 Chloride 109.6 mmol/L (98-107) H 10/24/18 04:36 Carbon Dioxide 21 mmol/L (22-30) L 10/24/18 04:36 Anion Gap 16 mmol/L 10/24/18 04:36 BUN 13 mg/dL (7-17) 10/24/18 04:36 Creatinine 1.2 mg/dL (0.7-1.2) D 10/24/18 04:36 Estimated GFR 58 ml/min 10/24/18 04:36 BUN/Creatinine Ratio 11 % 10/24/18 04:36 Glucose 182 mg/dL (65-100) H 10/24/18 04:36 Lactic Acid 1.40 mmol/L (0.7-2.0) 10/23/18 18:23 Calcium 7.2 mg/dL (8.4-10.2) L D 10/24/18 04:36 Total Bilirubin < 0.20 mg/dL (0.1-1.2) 10/23/18 15:55 AST 62 units/L (5-40) H 10/23/18 15:55 ALT 21 units/L (7-56) 10/23/18 15:55 Alkaline Phosphatase 90 units/L (35-129) 10/23/18 15:55 Total Protein 7.8 g/dL (6.3-8.2) 10/23/18 15:55 Albumin 3.2 g/dL (3.9-5) L 10/23/18 15:55 Albumin/Globulin Ratio 0.7 % 10/23/18 15:55 Lipase 3 units/L (13-60) L 10/23/18 15:55 HCG, Qual Negative (Negative) 10/23/18 15:55 Urine Color [place] (Yellow) 10/23/18 16:13 Urine Turbidity Cloudy (Clear) 10/23/18 16:13 Urine pH 5.0 (5.0-7.0) 10/23/18 16:13 Ur Specific [place] 1.013 (1.003-1.030) 10/23/18 16:13 Urine Protein >500 mg/dL (Negative) 10/23/18 16:13 Urine Glucose (UA) Neg mg/dL (Negative) 10/23/18 16:13 Urine Ketones Tr mg/dL (Negative) 10/23/18 16:13 Urine Blood Sm (Negative) 10/23/18 16:13 Urine Nitrite Neg (Negative) 10/23/18 16:13 Urine Bilirubin Neg (Negative) 10/23/18 16:13 Urine Urobilinogen 2.0 mg/dL (<2.0) 10/23/18 16:13 Ur Leukocyte Esterase Lg (Negative) 10/23/18 16:13 Urine WBC (Auto) > 182.0 /HPF (0.0-6.0) H 10/23/18 16:13 Urine RBC (Auto) 49.0 /HPF (0.0-6.0) 10/23/18 16:13 U Epithel Cells (Auto) 8.0 /HPF (0-13.0) 10/23/18 16:13 Urine Bacteria (Auto) 1+ /HPF (Negative) 10/23/18 16:13 Urine WBC Clumps 3+ /HPF 10/23/18 16:13 Ur Transition Epith Cell 6 /HPF 10/23/18 16:13 Urine Mucus Few /HPF 10/23/18 16:13
[2018-10-26] MEDS: AMBIEN PO PRN ×2 (00:41→23:30)
[2018-10-26] MEDS: DILAUDID IV PRN ×4 (00:42→22:17)
[2018-10-26] MEDS: ZOFRAN IV PRN (01:47)
[2018-10-26] MEDS: NACL 0.9% 1000 ML 1,000 ML IV SCH ×3 (01:47→22:22)
[2018-10-26] MEDS: ROCEPHIN/NS 1 GM/50 ML 1 GM/50 ML BAG IV SCH (09:00)
[2018-10-26] MEDS: SODIUM CHLORIDE FLUSH SYRINGE 10 ML IV SCH ×2 (09:07→22:21)
--- NOTE | 2018-10-26 09:29 | Progress Note ---
Assessment and Plan Assessment and plan: --Gram-negative sepsis;+ve Escherichia coli blood and urine Repeat cultures, consult ID, continue to suction and supportive care --Acute bilateral pyelonephritis; IV fluids, IV antibiotics,gm neg cultures, supportive care --Hyperkalemia; corrected, closely monitor electrolytes --Sepsis secondary to UTI/pyelonephritis; gram-negative positive urine cultures continue empiric antibiotics IV fluids and pain medications --Leukocytosis secondary to sepsis, closely monitor --Moderate malnutrition/hypoalbuminemia; supportive care with nutrition supplements --Morbid obesity; BMI 41.9 Patient advised weight reduction when medically stable --DVT prophylaxis; Lovenox --Ongoing tobacco use; smoking cessation, nicotine patch as needed Continue current management, Possible discharge in 1-2 days if stable Multiple family members at the bedside Plan of care is reviewed with patient and the family members as well as the nurse History Interval history: Patient seen and examined medical records reviewed Patient feels slightly better still complains of abdominal pain And generalized weakness Alert awake oriented vital signs noted Hospitalist Physical - Constitutional Vitals: Temp Pulse Resp BP Pulse Ox 99.5 F 113 H 24 129/80 95 10/26/18 04:58 10/26/18 04:58 10/26/18 04:58 10/26/18 04:58 10/26/18 04:58 General appearance: Present: no acute distress, well-nourished, obese - EENT Eyes: Present: PERRL, EOM intact - Neck Neck: Present: supple, normal ROM - Respiratory Respiratory effort: normal Respiratory: bilateral: diminished, negative: rales, rhonchi, wheezing - Cardiovascular Rhythm: regular Heart Sounds: Present: S1 & S2 - Extremities Extremities: no ischemia, No edema - Abdominal General gastrointestinal: soft, non-tender, non-distended, normal bowel sounds - Integumentary Integumentary: Present: clear, warm - Psychiatric Psychiatric: appropriate mood/affect, cooperative - Neurologic Neurologic: CNII-XII intact, moves all extremities Results - Labs CBC & Chem 7: 10/26/18 10:32 10/26/18 10:32 Labs: Laboratory Last Values WBC 16.5 K/mm3 (4.5-11.0) H 10/24/18 04:36 RBC 4.00 M/mm3 (3.65-5.03) 10/24/18 04:36 Hgb 9.1 gm/dl (10.1-14.3) L 10/24/18 04:36 Hct 28.7 % (30.3-42.9) L 10/24/18 04:36 MCV 72 fl (79-97) L 10/24/18 04:36 MCH 23 pg (28-32) L 10/24/18 04:36 MCHC 32 % (30-34) 10/24/18 04:36 RDW 19.8 % (13.2-15.2) H 10/24/18 04:36 Plt Count 200 K/mm3 (140-440) 10/24/18 04:36 Lymph % (Auto) 3.1 % (13.4-35.0) L 10/24/18 04:36 [place] % (Auto) 6.7 % (0.0-7.3) 10/24/18 04:36 Eos % (Auto) 0.4 % (0.0-4.3) 10/24/18 04:36 Baso % (Auto) 0.1 % (0.0-1.8) 10/24/18 04:36 Lymph # 0.5 K/mm3 (1.2-5.4) L 10/24/18 04:36 [place] # 1.1 K/mm3 (0.0-0.8) H 10/24/18 04:36 Eos # 0.1 K/mm3 (0.0-0.4) 10/24/18 04:36 Baso # 0.0 K/mm3 (0.0-0.1) 10/24/18 04:36 Add Manual Diff Complete 10/23/18 15:55 Total Counted 100 10/23/18 15:55 Seg Neutrophils % 89.7 % (40.0-70.0) H 10/24/18 04:36 Seg Neuts % (Manual) 77.0 % (40.0-70.0) H 10/23/18 15:55 Band Neutrophils % 15.0 % 10/23/18 15:55 Lymphocytes % (Manual) 2.0 % (13.4-35.0) L 10/23/18 15:55 Reactive Lymphs % (Man) 0 % 10/23/18 15:55 Monocytes % (Manual) 5.0 % (0.0-7.3) 10/23/18 15:55 Eosinophils % (Manual) 1.0 % (0.0-4.3) 10/23/18 15:55 Basophils % (Manual) 0 % (0.0-1.8) 10/23/18 15:55 Metamyelocytes % 0 % 10/23/18 15:55 Myelocytes % 0 % 10/23/18 15:55 Promyelocytes % 0 % 10/23/18 15:55 Blast Cells % 0 % 10/23/18 15:55 Nucleated RBC % Not Reportable 10/23/18 15:55 Seg Neutrophils # 14.8 K/mm3 (1.8-7.7) H 10/24/18 04:36 Seg Neutrophils # Man 14.6 K/mm3 (1.8-7.7) H 10/23/18 15:55 Band Neutrophils # 2.8 K/mm3 10/23/18 15:55 Lymphocytes # (Manual) 0.4 K/mm3 (1.2-5.4) L 10/23/18 15:55 Abs React Lymphs (Man) 0.0 K/mm3 10/23/18 15:55 Monocytes # (Manual) 0.9 K/mm3 (0.0-0.8) H 10/23/18 15:55 Eosinophils # (Manual) 0.2 K/mm3 (0.0-0.4) 10/23/18 15:55 Basophils # (Manual) 0.0 K/mm3 (0.0-0.1) 10/23/18 15:55 Metamyelocytes # 0.0 K/mm3 10/23/18 15:55 Myelocytes # 0.0 K/mm3 10/23/18 15:55 Promyelocytes # 0.0 K/mm3 10/23/18 15:55 Blast Cells # 0.0 K/mm3 10/23/18 15:55 WBC Morphology Not Reportable 10/23/18 15:55 Hypersegmented Neuts Not Reportable 10/23/18 15:55 Hyposegmented Neuts Not Reportable 10/23/18 15:55 Hypogranular Neuts Not Reportable 10/23/18 15:55 Smudge Cells Not Reportable 10/23/18 15:55 Toxic Granulation Not Reportable 10/23/18 15:55 Toxic Vacuolation Not Reportable 10/23/18 15:55 Dohle Bodies Not Reportable 10/23/18 15:55 Pelger-Huet Anomaly Not Reportable 10/23/18 15:55 Kareen Rods Not Reportable 10/23/18 15:55 Platelet Estimate Appears normal 10/23/18 15:55 Clumped Platelets Not Reportable 10/23/18 15:55 Plt Clumps, EDTA Not Reportable 10/23/18 15:55 Large Platelets Few 10/23/18 15:55 Giant Platelets Not Reportable 10/23/18 15:55 Platelet Satelliting Not Reportable 10/23/18 15:55 Plt Morphology Comment Not Reportable 10/23/18 15:55 RBC Morphology Not Reportable 10/23/18 15:55 Dimorphic RBCs Not Reportable 10/23/18 15:55 Polychromasia Not Reportable 10/23/18 15:55 Hypochromasia 1+ 10/23/18 15:55 Poikilocytosis Not Reportable 10/23/18 15:55 Anisocytosis 1+ 10/23/18 15:55 Microcytosis 1+ 10/23/18 15:55 Macrocytosis Not Reportable 10/23/18 15:55 Spherocytes Not Reportable 10/23/18 15:55 Pappenheimer Bodies Not Reportable 10/23/18 15:55 Sickle Cells Not Reportable 10/23/18 15:55 Target Cells Not Reportable 10/23/18 15:55 Tear Drop Cells Not Reportable 10/23/18 15:55 Ovalocytes Few 10/23/18 15:55 Helmet Cells Not Reportable 10/23/18 15:55 Sepulveda-[place] Bodies Not Reportable 10/23/18 15:55 [place] Rings Not Reportable 10/23/18 15:55 [place] Cells Not Reportable 10/23/18 15:55 Bite Cells Not Reportable 10/23/18 15:55 Crenated Cell Not Reportable 10/23/18 15:55 Elliptocytes Not Reportable 10/23/18 15:55 Acanthocytes (Spur) Not Reportable 10/23/18 15:55 Rouleaux Not Reportable 10/23/18 15:55 Hemoglobin C Crystals Not Reportable 10/23/18 15:55 Schistocytes Not Reportable 10/23/18 15:55 Malaria parasites Not Reportable 10/23/18 15:55 Arian Bodies Not Reportable 10/23/18 15:55 Hem Pathologist Commnt No 10/23/18 15:55 VBG pH 7.341 (7.320-7.420) 10/23/18 18:23 Sodium 143 mmol/L (137-145) 10/24/18 04:36 Potassium 4.0 mmol/L (3.6-5.0) D 10/24/18 04:36 Chloride 109.6 mmol/L (98-107) H 10/24/18 04:36 Carbon Dioxide 21 mmol/L (22-30) L 10/24/18 04:36 Anion Gap 16 mmol/L 10/24/18 04:36 BUN 13 mg/dL (7-17) 10/24/18 04:36 Creatinine 1.2 mg/dL (0.7-1.2) D 10/24/18 04:36 Estimated GFR 58 ml/min 10/24/18 04:36 BUN/Creatinine Ratio 11 % 10/24/18 04:36 Glucose 182 mg/dL (65-100) H 10/24/18 04:36 Lactic Acid 1.40 mmol/L (0.7-2.0) 10/23/18 18:23 Calcium 7.2 mg/dL (8.4-10.2) L D 10/24/18 04:36 Total Bilirubin < 0.20 mg/dL (0.1-1.2) 10/23/18 15:55 AST 62 units/L (5-40) H 10/23/18 15:55 ALT 21 units/L (7-56) 10/23/18 15:55 Alkaline Phosphatase 90 units/L (35-129) 10/23/18 15:55 Total Protein 7.8 g/dL (6.3-8.2) 10/23/18 15:55 Albumin 3.2 g/dL (3.9-5) L 10/23/18 15:55 Albumin/Globulin Ratio 0.7 % 10/23/18 15:55 Lipase 3 units/L (13-60) L 10/23/18 15:55 HCG, Qual Negative (Negative) 10/23/18 15:55 Urine Color [place] (Yellow) 10/23/18 16:13 Urine Turbidity Cloudy (Clear) 10/23/18 16:13 Urine pH 5.0 (5.0-7.0) 10/23/18 16:13 Ur Specific [place] 1.013 (1.003-1.030) 10/23/18 16:13 Urine Protein >500 mg/dL (Negative) 10/23/18 16:13 Urine Glucose (UA) Neg mg/dL (Negative) 10/23/18 16:13 Urine Ketones Tr mg/dL (Negative) 10/23/18 16:13 Urine Blood Sm (Negative) 10/23/18 16:13 Urine Nitrite Neg (Negative) 10/23/18 16:13 Urine Bilirubin Neg (Negative) 10/23/18 16:13 Urine Urobilinogen 2.0 mg/dL (<2.0) 10/23/18 16:13 Ur Leukocyte Esterase Lg (Negative) 10/23/18 16:13 Urine WBC (Auto) > 182.0 /HPF (0.0-6.0) H 10/23/18 16:13 Urine RBC (Auto) 49.0 /HPF (0.0-6.0) 10/23/18 16:13 U Epithel Cells (Auto) 8.0 /HPF (0-13.0) 10/23/18 16:13 Urine Bacteria (Auto) 1+ /HPF (Negative) 10/23/18 16:13 Urine WBC Clumps 3+ /HPF 10/23/18 16:13 Ur Transition Epith Cell 6 /HPF 10/23/18 16:13 Urine Mucus Few /HPF 10/23/18 16:13
[2018-10-26] MEDS ORDERED: ROCEPHIN/NS 2 GM/100 ML 2 GM/100 ML BAG IV SCH (10:00)
[2018-10-26 10:58] LABS: Hematocrit 28.5 % (30.3-42.9); Hemoglobin 9.1 gm/dl (10.1-14.3); Mean Corpuscular HGB Conc 32 % (30-34); Mean Corpuscular Volume 70 fl (79-97); Platelet Count 269 K/mm3 (140-440); Red Blood Count 4.06 M/mm3 (3.65-5.03); Red Cell Distribution Width 19.9 % (13.2-15.2)
[2018-10-26 11:20] LABS: BUN/Creatinine Ratio 4; Blood Urea Nitrogen 4 mg/dL (7-17); Calcium 7.8 mg/dL (8.4-10.2); Hemolysis Index 0
--- NOTE | 2018-10-26 11:35 | Consultation ---
History of Present Illness - Reason for Consult Consult date: 10/26/18 Sepsis, Bacteremia, pyelonephritis Requesting physician: SILVIO KINNEY - History of Present Illness The patient is a 48-year-old female with hypertension who presented to the emergency room on 10/23/2018 with complaints of bilateral flank pain and abdominal pain. The symptoms started about 2 days prior to admission. Initially, she had a pressure type sensation when she urinated which was associated with fevers and shaking chills. Here, she was noted to be febrile and septic with CT scan evidence of bilateral pyelonephritis. She was empirically started on IV ceftriaxone. Blood cultures have grown Escherichia coli along with the urine cultures. Infectious diseases was consulted. She had another fever of 102.8F yesterday. Feels bloated. Denies any urinary burning. Denies any vomiting or loose stools. She hasn't had a bowel movement since admission. She reports that she recently became sexually active about a month or so ago. Denies any recreational or IV drug use. Does smoke a cigar occasionally and drinks alcohol occasionally. Review of Systems: General: + for fever, chills and rigors HEENT: no new visual disturbance Respiratory: No cough, sputum, hemoptysis or shortness of breath Cardiovascular: No chest pain, syncope Gastrointestinal: No vomiting or diarrhea Genitourinary: No dysuria or hematuria currently Musculoskeletal: No new or worsening neck pain or back pain Neurologic: No headaches, seizures Hematologic: No easy bruising or bleeding Endocrine: No night sweats or acute weight loss Skin: negative for rash, jaundice Psychiatric: No suicidal or homicidal ideation Medications and Allergies Allergies Allergy/AdvReac Type Severity Reaction Status Date / Time No Known Allergies Allergy Verified 12/07/14 20:54 Home Medications Medication Instructions Recorded Confirmed Last Taken Type HYDROcodone/APAP 5-325 [[place] 1 each PO Q6HR PRN #8 tablet 03/12/17 04/27/17 Unknown Rx 5-325 mg TAB] Ibuprofen [Motrin 800 MG tab] 800 mg PO QDAY PRN 04/27/17 04/27/17 Unknown History Active Meds: Active Medications Acetaminophen (Tylenol) 650 mg PO Q4H PRN PRN Reason: Pain MILD(1-3)/Fever >100.5/ABAD Last Admin: 10/25/18 17:59 Dose: 650 mg Documented by: Hydromorphone HCl (Dilaudid) 0.5 mg IV Q6H PRN PRN Reason: Pain , Severe (7-10) Last Admin: 10/26/18 08:56 Dose: 0.5 mg Documented by: Hydrophilic Ointment (Vaseline Lip Therapy) 1 applic TP DIRECT PRN PRN Reason: Dry Lips Sodium Chloride (Nacl 0.9% 1000 Ml) 1,000 mls @ 150 mls/hr IV DIRECT KIMBERLI Last Admin: 10/26/18 01:47 Dose: 150 mls/hr Documented by: Cefazolin Sodium 2 gm/ Sodium (Chloride) 100 mls @ 200 mls/hr IV Q8HR KIMBERLI Ondansetron HCl (Zofran) 4 mg IV Q4H PRN PRN Reason: Nausea And Vomiting Last Admin: 10/26/18 01:47 Dose: 4 mg Documented by: Sodium Chloride (Sodium Chloride Flush Syringe 10 Ml) 10 ml IV BID KIMBERLI Last Admin: 10/26/18 09:07 Dose: Not Given Documented by: Sodium Chloride (Sodium Chloride Flush Syringe 10 Ml) 10 ml IV PRN PRN PRN Reason: LINE FLUSH Last Admin: 10/24/18 20:55 Dose: 10 ml Documented by: Zolpidem Tartrate (Ambien) 5 mg PO QHS PRN PRN Reason: Sleep Last Admin: 10/26/18 00:41 Dose: 5 mg Documented by: Physical Examination - Physical Exam Narrative exam: Physical Exam: Constitutional: Alert, cooperative. No acute distress Head, Ears, Nose: Normocephalic, atraumatic. External ears, nose normal Eyes: Conjunctivae/corneas clear. No icterus. No ptosis. Neck: Supple, no meningeal signs Oral: dentition fair, no thrush Cardiovascular: S1, S2 normal. Respiratory: Good air entry, clear to auscultation bilaterally GI: Soft, bloated, non-tender; bowel sounds normal. No peritoneal signs. mild b/l CVA tenderness Musculoskeletal: No pedal edema, no cyanosis. Skin: No rash or abscess Hem/Lymphatic: No palpable cervical or supraclavicular nodes. No lymphangitis Psych: Mood ok. Affect normal Neurological: Awake, alert, oriented. No gross abnormality - Constitutional Vitals: Vital Signs Temp Pulse Resp BP Pulse Ox 99.5 F 113 H 24 129/80 99 10/26/18 04:58 10/26/18 04:58 10/26/18 04:58 10/26/18 04:58 10/26/18 10:00 Temperature -Last 24 Hours Temperature 99.5 F Temperature 99.0 F Temperature 102.8 F Temperature 98.9 F Results - Labs CBC & Chem 7: 10/26/18 10:32 10/26/18 10:32 Labs: Abnormal lab results 10/26/18 10/26/18 Range/Units 10:32 10:32 Hgb 9.1 L (10.1-14.3) gm/dl Hct 28.5 L (30.3-42.9) % MCV 70 L (79-97) fl MCH 23 L (28-32) pg RDW 19.9 H (13.2-15.2) % Potassium 3.1 L D (3.6-5.0) mmol/L BUN 4 L (7-17) mg/dL Glucose 129 H (65-100) mg/dL Calcium 7.8 L (8.4-10.2) mg/dL - Imaging and Cardiology CT scan - abdomen: report reviewed, image reviewed (b/l pyelonephritis, R>L) Assessment and Plan Cultures: 10/23/2018 urine and blood cultures growing pena susceptible Escherichia coli A/P: 48/F with HTN admitted with: 1) Sepsis secondary to Escherichia coli bacteremia, bilateral pyelonephritis and urinary tract infection: WBC has been improving since admission. Initial CT was with IV contrast and did not show any renal abscess. Still having fevers. It is possible she may be under dosed with ceftriaxone 1 g given her weight and morbid obesity. Escherichia coli isolate is pena susceptible, will start her on IV cefazolin and discontinue ceftriaxone. Also get renal ultrasound to eval for any early abscess development. 2) Morbid obesity: Those antibiotics accordingly. 3) Constipation: Consider a laxative or stool softeners. Recs: Discontinue ceftriaxone Started IV cefazolin 2 g every 8 hours In general, for gram-negative bacteremia of urinary source, repeat blood cultures are not needed, however given her persistent fevers, we'll repeat blood cultures We'll also order bilateral renal ultrasound to evaluate for any early abscess development If clinically improved, anticipate discharge on oral antibiotics D/W Dr. Kinney. Dr. Hicks rounding tomorrow. Ozzie Hope MD [facility] C: [phone] O: [phone] F: [phone]
[2018-10-26 11:40] LABS: Basophils % (Manual) 0 % (0.0-1.8); Total Cells Counted 100
[2018-10-26 11:41] LABS: Anisocytosis 1+; Ovalocytes Few; Platelet Estimate Consistent w Auto; Poikilocytosis 1+; Target Cells Rare
[2018-10-26] MEDS ORDERED: ROCEPHIN/NS 1 GM/50 ML 1 GM/50 ML BAG IV ONE (12:00)
[2018-10-26] MEDS: ceFAZolin 2 GM in NACL 0.9% 100 ML IV SCH ×2 (14:46→22:00)
[2018-10-26] MEDS ORDERED: MILK OF MAGNESIA PO ONE (18:22)
[2018-10-26] MEDS ORDERED: DULCOLAX PR ONE (18:22)
[2018-10-26] MEDS ORDERED: DULCOLAX PR PRN (18:22)
[2018-10-26] MEDS ORDERED: MILK OF MAGNESIA PO PRN (18:22)
[2018-10-26] MEDS ORDERED: APRESOLINE IV PRN (18:23)
[2018-10-26] MEDS: APRESOLINE PO SCH (22:17)
[2018-10-27] MEDS: ceFAZolin 2 GM in NACL 0.9% 100 ML IV SCH ×3 (05:29→22:15)
[2018-10-27 06:27] LABS: Hematocrit 28.4 % (30.3-42.9); Hemoglobin 9.3 gm/dl (10.1-14.3); Mean Corpuscular HGB Conc 33 % (30-34); Platelet Count 290 K/mm3 (140-440); Red Blood Count 4.06 M/mm3 (3.65-5.03); Red Cell Distribution Width 19.3 % (13.2-15.2)
[2018-10-27] MEDS: APRESOLINE PO SCH ×3 (06:36→21:47)
[2018-10-27] MEDS: DILAUDID IV PRN ×3 (06:36→21:31)
[2018-10-27 06:48] LABS: Mean Corpuscular Volume 70 fl (79-97)
[2018-10-27 06:52] LABS: BUN/Creatinine Ratio 5; Blood Urea Nitrogen 4 mg/dL (7-17); Calcium 8.4 mg/dL (8.4-10.2); Hemolysis Index 0
[2018-10-27 08:20] LABS: Band Neutrophils # (Manual) 0.1 K/mm3; Basophils % (Manual) 0 % (0.0-1.8); Total Cells Counted 100
--- NOTE | 2018-10-27 08:20 | Ultrasound Report ---
ULTRASOUND RENAL BILATERAL HISTORY: Evaluate for abscess. TECHNIQUE: transabdominal ultrasound with color Doppler interrogation. COMPARISON: CT abdomen and pelvis with contrast performed 10/23/18. FINDINGS: The kidneys are normal size, contour and position. There is increased renal cortical echotexture bilaterally consistent with nonspecific renal parenchymal disease. Corticomedullary differentiation is preserved. No evidence for cystic disease, mass, nephrolithiasis, hydronephrosis or perinephric fluid. The views of the bladder and the region of the ureters appear normal. IMPRESSION: Renal parenchymal disease. No evidence for renal abscess.
[2018-10-27 08:21] LABS: Anisocytosis 2+; Hypochromasia 1+; Ovalocytes Few; Platelet Estimate Consistent w Auto; Poikilocytosis 1+; Target Cells Few
[2018-10-27] MEDS ORDERED: ROCEPHIN/NS 2 GM/100 ML 2 GM/100 ML BAG IV SCH (10:00)
--- NOTE | 2018-10-27 10:12 | Progress Note ---
Assessment and Plan Cultures: 10/23/2018 urine and blood cultures growing pena susceptible Escherichia coli 10/26/2018 Blood: in progress A/P: 48/F with HTN admitted with: 1) Sepsis no leukocytosis, Still having fevers, secondary to Escherichia coli bacteremia, bilateral pyelonephritis and urinary tract infection: . It is possible she may be under dosed with ceftriaxone 1 g given her weight and morbid obesity. Escherichia coli isolate is pena susceptible, will start her on IV cefazolin and discontinue ceftriaxone. Also get renal ultrasound to eval for any early abscess development. 2) E. coli Bacteremia: leukocytosis on admission, resolved. Low grade temperatures continuing. Blood cultures are pena susceptible E. Coli. Cefazolin 2G, IV started. 3). Bilaterl pyelonepritis : U/A consistent with UTI. Urine cultures grew E. Coli, pena susceptible. - CT Abdomen - - Both kidneys appear mildly enlarged. There is some inhomogeneous enhancement of the renal parenchyma bilaterally. . There is mild infiltration of the fat adjacent to both kidneys. The findings could represent acute pyelonephritis. -Renal Ultrasound - renal parenchymal disease. No evidence for renal abscess 2) Morbid obesity: Those antibiotics accordingly. 3) Constipation: Consider a laxative or stool softeners. Recs: Continue IV cefazolin 2 g every 8 hours If clinically improved, anticipate discharge on oral antibiotics f/u blood cultures Fever may continue for 3-5 days despite appropriate antibiotics Dr. Hicks will be rn chronic this weekend, . Please call for questions. Kaitlin Marx NP [facility] M: [phone] O:[phone] Subjective Date of service: 10/27/18 Interval history: Patient seen and examined. Complains and RUQ and LUQ pain. Low grade fevers. Nurses notes, labs and reports reviewed, discussed with patient. Objective - Exam Narrative Exam: Constitutional: Alert, cooperative. Acute distress, RUQ and LUQ pain Head, Ears, Nose: Normocephalic, atraumatic. External ears, nose normal Eyes: Conjunctivae/corneas clear. No icterus. No ptosis. Neck: Supple, no meningeal signs Oral: dentition fair, no thrush Cardiovascular: S1, S2 normal. Respiratory: Good air entry, clear to auscultation bilaterally GI: Soft, bloated, non-tender; bowel sounds normal. No peritoneal signs.RUQ and LUQ pain, no CVA tenderness Musculoskeletal: No pedal edema, no cyanosis. Skin: No rash or abscess Hem/Lymphatic: No palpable cervical or supraclavicular nodes. No lymphangitis Psych: Mood ok. Affect normal Neurological: Awake, alert, oriented. No gross abnormality - Constitutional Vitals: Vital Signs Temp Pulse Resp BP Pulse Ox 98.0 F 88 20 140/73 99 10/27/18 04:19 10/27/18 06:36 10/27/18 06:36 10/27/18 04:19 10/27/18 04:19 Temperature -Last 24 Hours Temperature 98.0 F Temperature 99.5 F Temperature 100.0 F Temperature 99.2 F - Labs CBC & Chem 7: 10/27/18 05:26 10/27/18 05:26 Labs: Abnormal lab results 10/26/18 10/26/18 10/27/18 Range/Units 10:32 10:32 05:26 Hgb 9.1 L 9.3 L (10.1-14.3) gm/dl Hct 28.5 L 28.4 L (30.3-42.9) % MCV 70 L 70 L (79-97) fl MCH 23 L 23 L (28-32) pg RDW 19.9 H 19.3 H (13.2-15.2) % Seg Neuts % (Manual) 77.0 H (40.0-70.0) % Lymphocytes % (Manual) 9.0 L (13.4-35.0) % Monocytes % (Manual) 10.0 H 11.0 H (0.0-7.3) % Lymphocytes # (Manual) 0.6 L (1.2-5.4) K/mm3 Potassium 3.1 L D (3.6-5.0) mmol/L BUN 4 L (7-17) mg/dL Glucose 129 H (65-100) mg/dL Calcium 7.8 L (8.4-10.2) mg/dL 10/27/18 Range/Units 05:26 Hgb (10.1-14.3) gm/dl Hct (30.3-42.9) % MCV (79-97) fl MCH (28-32) pg RDW (13.2-15.2) % Seg Neuts % (Manual) (40.0-70.0) % Lymphocytes % (Manual) (13.4-35.0) % Monocytes % (Manual) (0.0-7.3) % Lymphocytes # (Manual) (1.2-5.4) K/mm3 Potassium 3.3 L (3.6-5.0) mmol/L BUN 4 L (7-17) mg/dL Glucose 107 H (65-100) mg/dL Calcium (8.4-10.2) mg/dL
[2018-10-27] MEDS ORDERED: POTASSIUM CHLORIDE FEEDTUBE ONE (12:00)
[2018-10-27] MEDS: SODIUM CHLORIDE FLUSH SYRINGE 10 ML IV SCH ×2 (13:43→21:48)
--- NOTE | 2018-10-27 21:39 | Progress Note ---
Assessment and Plan Assessment and plan: --Acute bilateral pyelonephritis; UTI IV fluids, IV antibiotics, blood and urine cultures positive for Escherichia coli, ID following --Gram-negative sepsis;+ve Escherichia coli blood and urine Continue antibiotics per ID, possible discharge in 1-2 days on oral antibiotics --Persistent low-grade fever; continue current antibiotics and supportive care --Hyperkalemia; corrected, closely monitor electrolytes --Leukocytosis secondary to sepsis, resolved --Moderate malnutrition/hypoalbuminemia; supportive care with nutrition supplements --Morbid obesity; BMI 41.9 Patient advised weight reduction when medically stable --DVT prophylaxis; Lovenox --Ongoing tobacco use; smoking cessation, nicotine patch as needed Possible discharge in 1-2 days on oral antibiotics if stable Plan of care is reviewed with patient as well as the nurse History Interval history: Patient seen and exam and medical records reviewed Persistent low-grade fevers Patient complains of generalized body pains and weakness Vital signs noted Hospitalist Physical - Constitutional Vitals: Temp Pulse Resp BP Pulse Ox 98.3 F 91 H 18 151/89 97 10/27/18 16:37 10/27/18 16:37 10/27/18 16:37 10/27/18 16:37 10/27/18 16:37 General appearance: Present: no acute distress, well-nourished, obese, other (low-grade fever) - EENT Eyes: Present: PERRL, EOM intact - Neck Neck: Present: supple, normal ROM - Respiratory Respiratory effort: normal Respiratory: bilateral: diminished, negative: rales, rhonchi, wheezing - Cardiovascular Rhythm: regular Heart Sounds: Present: S1 & S2 - Extremities Extremities: no ischemia, No edema - Abdominal General gastrointestinal: soft, non-tender, non-distended, normal bowel sounds - Integumentary Integumentary: Present: clear, warm - Psychiatric Psychiatric: appropriate mood/affect, cooperative - Neurologic Neurologic: CNII-XII intact, moves all extremities Results - Labs CBC & Chem 7: 10/27/18 05:26 10/27/18 05:26 Labs: Laboratory Last Values WBC 6.9 K/mm3 (4.5-11.0) 10/27/18 05:26 RBC 4.06 M/mm3 (3.65-5.03) 10/27/18 05:26 Hgb 9.3 gm/dl (10.1-14.3) L 10/27/18 05:26 Hct 28.4 % (30.3-42.9) L 10/27/18 05:26 MCV 70 fl (79-97) L 10/27/18 05:26 MCH 23 pg (28-32) L 10/27/18 05:26 MCHC 33 % (30-34) 10/27/18 05:26 RDW 19.3 % (13.2-15.2) H 10/27/18 05:26 Plt Count 290 K/mm3 (140-440) 10/27/18 05:26 Lymph % (Auto) 3.1 % (13.4-35.0) L 10/24/18 04:36 [place] % (Auto) Air Quality Chemist 10/27/18 05:26 Eos % (Auto) 0.4 % (0.0-4.3) 10/24/18 04:36 Baso % (Auto) 0.1 % (0.0-1.8) 10/24/18 04:36 Lymph # 0.5 K/mm3 (1.2-5.4) L 10/24/18 04:36 [place] # 1.1 K/mm3 (0.0-0.8) H 10/24/18 04:36 Eos # 0.1 K/mm3 (0.0-0.4) 10/24/18 04:36 Baso # 0.0 K/mm3 (0.0-0.1) 10/24/18 04:36 Add Manual Diff Complete 10/27/18 05:26 Total Counted 100 10/27/18 05:26 Seg Neutrophils % 89.7 % (40.0-70.0) H 10/24/18 04:36 Seg Neuts % (Manual) 56.0 % (40.0-70.0) 10/27/18 05:26 Band Neutrophils % 2.0 % 10/27/18 05:26 Lymphocytes % (Manual) 27.0 % (13.4-35.0) 10/27/18 05:26 Reactive Lymphs % (Man) 2.0 % 10/27/18 05:26 Monocytes % (Manual) 11.0 % (0.0-7.3) H 10/27/18 05:26 Eosinophils % (Manual) 2.0 % (0.0-4.3) 10/27/18 05:26 Basophils % (Manual) 0 % (0.0-1.8) 10/27/18 05:26 Metamyelocytes % 0 % 10/27/18 05:26 Myelocytes % 0 % 10/27/18 05:26 Promyelocytes % 0 % 10/27/18 05:26 Blast Cells % 0 % 10/27/18 05:26 Nucleated RBC % Not Reportable 10/27/18 05:26 Seg Neutrophils # 14.8 K/mm3 (1.8-7.7) H 10/24/18 04:36 Seg Neutrophils # Man 3.9 K/mm3 (1.8-7.7) 10/27/18 05:26 Band Neutrophils # 0.1 K/mm3 10/27/18 05:26 Lymphocytes # (Manual) 1.9 K/mm3 (1.2-5.4) 10/27/18 05:26 Abs React Lymphs (Man) 0.1 K/mm3 10/27/18 05:26 Monocytes # (Manual) 0.8 K/mm3 (0.0-0.8) 10/27/18 05:26 Eosinophils # (Manual) 0.1 K/mm3 (0.0-0.4) 10/27/18 05:26 Basophils # (Manual) 0.0 K/mm3 (0.0-0.1) 10/27/18 05:26 Metamyelocytes # 0.0 K/mm3 10/27/18 05:26 Myelocytes # 0.0 K/mm3 10/27/18 05:26 Promyelocytes # 0.0 K/mm3 10/27/18 05:26 Blast Cells # 0.0 K/mm3 10/27/18 05:26 WBC Morphology Not Reportable 10/27/18 05:26 Hypersegmented Neuts Not Reportable 10/27/18 05:26 Hyposegmented Neuts Not Reportable 10/27/18 05:26 Hypogranular Neuts Not Reportable 10/27/18 05:26 Smudge Cells Not Reportable 10/27/18 05:26 Toxic Granulation Not Reportable 10/27/18 05:26 Toxic Vacuolation Not Reportable 10/27/18 05:26 Dohle Bodies Not Reportable 10/27/18 05:26 Pelger-Huet Anomaly Not Reportable 10/27/18 05:26 Kareen Rods Not Reportable 10/27/18 05:26 Platelet Estimate Consistent w auto 10/27/18 05:26 Clumped Platelets Not Reportable 10/27/18 05:26 Plt Clumps, EDTA Not Reportable 10/27/18 05:26 Large Platelets Not Reportable 10/27/18 05:26 Giant Platelets Not Reportable 10/27/18 05:26 Platelet Satelliting Not Reportable 10/27/18 05:26 Plt Morphology Comment Not Reportable 10/27/18 05:26 RBC Morphology Not Reportable 10/27/18 05:26 Dimorphic RBCs Not Reportable 10/27/18 05:26 Polychromasia Not Reportable 10/27/18 05:26 Hypochromasia 1+ 10/27/18 05:26 Poikilocytosis 1+ 10/27/18 05:26 Anisocytosis 2+ 10/27/18 05:26 Microcytosis 2+ 10/27/18 05:26 Macrocytosis Not Reportable 10/27/18 05:26 Spherocytes Not Reportable 10/27/18 05:26 Pappenheimer Bodies Not Reportable 10/27/18 05:26 Sickle Cells Not Reportable 10/27/18 05:26 Target Cells Few 10/27/18 05:26 Tear Drop Cells Not Reportable 10/27/18 05:26 Ovalocytes Few 10/27/18 05:26 Helmet Cells Not Reportable 10/27/18 05:26 Sepulveda-[place] Bodies Not Reportable 10/27/18 05:26 Slick Rings Not Reportable 10/27/18 05:26 [place]ia Cells Not Reportable 10/27/18 05:26 Bite Cells Not Reportable 10/27/18 05:26 Crenated Cell Not Reportable 10/27/18 05:26 Elliptocytes Few 10/27/18 05:26 Acanthocytes (Spur) Not Reportable 10/27/18 05:26 Rouleaux Not Reportable 10/27/18 05:26 Hemoglobin C Crystals Not Reportable 10/27/18 05:26 Schistocytes Not Reportable 10/27/18 05:26 Malaria parasites Not Reportable 10/27/18 05:26 Arian Bodies Not Reportable 10/27/18 05:26 Hem Pathologist Commnt No 10/27/18 05:26 VBG pH 7.341 (7.320-7.420) 10/23/18 18:23 Sodium 144 mmol/L (137-145) 10/27/18 05:26 Potassium 3.3 mmol/L (3.6-5.0) L 10/27/18 05:26 Chloride 104.5 mmol/L (98-107) 10/27/18 05:26 Carbon Dioxide 25 mmol/L (22-30) 10/27/18 05:26 Anion Gap 18 mmol/L 10/27/18 05:26 BUN 4 mg/dL (7-17) L 10/27/18 05:26 Creatinine 0.8 mg/dL (0.7-1.2) 10/27/18 05:26 Estimated GFR > 60 ml/min 10/27/18 05:26 BUN/Creatinine Ratio 5 % 10/27/18 05:26 Glucose 107 mg/dL (65-100) H 10/27/18 05:26 Lactic Acid 1.40 mmol/L (0.7-2.0) 10/23/18 18:23 Calcium 8.4 mg/dL (8.4-10.2) 10/27/18 05:26 Total Bilirubin < 0.20 mg/dL (0.1-1.2) 10/23/18 15:55 AST 62 units/L (5-40) H 10/23/18 15:55 ALT 21 units/L (7-56) 10/23/18 15:55 Alkaline Phosphatase 90 units/L (35-129) 10/23/18 15:55 Total Protein 7.8 g/dL (6.3-8.2) 10/23/18 15:55 Albumin 3.2 g/dL (3.9-5) L 10/23/18 15:55 Albumin/Globulin Ratio 0.7 % 10/23/18 15:55 Lipase 3 units/L (13-60) L 10/23/18 15:55 HCG, Qual Negative (Negative) 10/23/18 15:55 Urine Color Gloria (Yellow) 10/23/18 16:13 Urine Turbidity Cloudy (Clear) 10/23/18 16:13 Urine pH 5.0 (5.0-7.0) 10/23/18 16:13 Ur Specific [place] 1.013 (1.003-1.030) 10/23/18 16:13 Urine Protein >500 mg/dL (Negative) 10/23/18 16:13 Urine Glucose (UA) Neg mg/dL (Negative) 10/23/18 16:13 Urine Ketones Tr mg/dL (Negative) 10/23/18 16:13 Urine Blood Sm (Negative) 10/23/18 16:13 Urine Nitrite Neg (Negative) 10/23/18 16:13 Urine Bilirubin Neg (Negative) 10/23/18 16:13 Urine Urobilinogen 2.0 mg/dL (<2.0) 10/23/18 16:13 Ur Leukocyte Esterase Lg (Negative) 10/23/18 16:13 Urine WBC (Auto) > 182.0 /HPF (0.0-6.0) H 10/23/18 16:13 Urine RBC (Auto) 49.0 /HPF (0.0-6.0) 10/23/18 16:13 U Epithel Cells (Auto) 8.0 /HPF (0-13.0) 10/23/18 16:13 Urine Bacteria (Auto) 1+ /HPF (Negative) 10/23/18 16:13 Urine WBC Clumps 3+ /HPF 10/23/18 16:13 Ur Transition Epith Cell 6 /HPF 10/23/18 16:13 Urine Mucus Few /HPF 10/23/18 16:13
[2018-10-27] MEDS: AMBIEN PO PRN (23:04)
[2018-10-28] MEDS: NACL 0.9% 1000 ML 1,000 ML IV SCH (02:09)
[2018-10-28 05:31] LABS: Hemoglobin 9.4 gm/dl (10.1-14.3); Mean Corpuscular HGB Conc 33 % (30-34); Platelet Count 354 K/mm3 (140-440); Red Blood Count 4.16 M/mm3 (3.65-5.03); Red Cell Distribution Width 19.9 % (13.2-15.2)
[2018-10-28 05:36] LABS: Mean Corpuscular Volume 70 fl (79-97)
[2018-10-28] MEDS: APRESOLINE PO SCH ×2 (05:37→13:31)
[2018-10-28 05:38] LABS: BUN/Creatinine Ratio 6; Blood Urea Nitrogen 4 mg/dL (7-17); Calcium 8.4 mg/dL (8.4-10.2); Hemolysis Index 0
[2018-10-28] MEDS: ceFAZolin 2 GM in NACL 0.9% 100 ML IV SCH ×2 (06:13→13:33)
[2018-10-28] MEDS: DILAUDID IV PRN ×2 (06:13→13:31)
[2018-10-28 07:06] LABS: Band Neutrophils # (Manual) 0.3 K/mm3; Basophils % (Manual) 0 % (0.0-1.8); Eosinophils % (Manual) 0 % (0.0-4.3); Total Cells Counted 100
[2018-10-28 07:07] LABS: Anisocytosis 2+; Hypochromasia 2+
[2018-10-28 07:08] LABS: Large Platelets Few; Ovalocytes Few
[2018-10-28 13:31] VITALS: BP 140/84
[2018-10-28] MEDS ORDERED: K-DUR PO ONE (13:32)
--- NOTE | 2018-10-28 13:34 | Progress Note ---
Assessment and Plan Assessment and plan: --Acute bilateral pyelonephritis; UTI IV fluids, IV antibiotics, blood and urine cultures positive for Escherichia coli, ID following --Gram-negative sepsis;+ve Escherichia coli blood and urine Continue antibiotics per ID, possible discharge in 1-2 days on oral antibiotics needs 14 day total of abx --Persistent low-grade fever; continue current antibiotics and supportive care --Hyperkalemia; now resolved, received kayexalate Hypokalemia; replete --Leukocytosis secondary to sepsis, resolved --Moderate malnutrition/hypoalbuminemia; supportive care with nutrition supplements --Morbid obesity; BMI 41.9 Patient advised weight reduction when medically stable --DVT prophylaxis; Lovenox --Ongoing tobacco use; smoking cessation, nicotine patch as needed Possible discharge in 1-2 days on oral antibiotics if stable Plan of care is reviewed with patient as well as the nurse History Interval history: Review of systems Constitutional: No fevers, no malaise, no joint pains CVS: No chest pain, no orthopnea, no dyspnea on exertion, no pedal edema GI: No abdominal pain, no diarrhea, no vomiting, no constipation Respiratory: No shortness of breath, no wheezing, no coughing Hospitalist Physical - Physical exam Narrative exam: General.: Appears well, no distress, nontoxic HEENT: Moist mucous membranes, extraocular muscles intact, no lymphadenopathy Neck: supple Cardiac: S1-S2 heard Lungs: clear to auscultation bilaterally Abdomen: soft , nontender, nondistended, bowel sounds positive Extremities: no edema clubbing or cyanosis Skin: no rash or lesions Neurologic: no gross focal deficits Psych: calm, and cooperative - Constitutional Vitals: Temp Pulse Resp BP Pulse Ox 98.5 F 89 20 140/84 99 10/28/18 11:55 10/28/18 13:31 10/28/18 11:55 10/28/18 13:31 10/28/18 04:15 General appearance: Present: no acute distress, well-nourished, obese Results - Labs CBC & Chem 7: 10/28/18 04:59 10/28/18 04:58 Labs: Laboratory Last Values WBC 6.6 K/mm3 (4.5-11.0) 10/28/18 04:59 RBC 4.16 M/mm3 (3.65-5.03) 10/28/18 04:59 Hgb 9.4 gm/dl (10.1-14.3) L 10/28/18 04:59 Hct 29.0 % (30.3-42.9) L 10/28/18 04:59 MCV 70 fl (79-97) L 10/28/18 04:59 MCH 23 pg (28-32) L 10/28/18 04:59 MCHC 33 % (30-34) 10/28/18 04:59 RDW 19.9 % (13.2-15.2) H 10/28/18 04:59 Plt Count 354 K/mm3 (140-440) 10/28/18 04:59 Lymph % (Auto) 3.1 % (13.4-35.0) L 10/24/18 04:36 [place] % (Auto) Solderer Assembler 10/28/18 04:59 Eos % (Auto) 0.4 % (0.0-4.3) 10/24/18 04:36 Baso % (Auto) 0.1 % (0.0-1.8) 10/24/18 04:36 Lymph # 0.5 K/mm3 (1.2-5.4) L 10/24/18 04:36 [place] # 1.1 K/mm3 (0.0-0.8) H 10/24/18 04:36 Eos # 0.1 K/mm3 (0.0-0.4) 10/24/18 04:36 Baso # 0.0 K/mm3 (0.0-0.1) 10/24/18 04:36 Add Manual Diff Complete 10/28/18 04:59 Total Counted 100 10/28/18 04:59 Seg Neutrophils % 89.7 % (40.0-70.0) H 10/24/18 04:36 Seg Neuts % (Manual) 59.0 % (40.0-70.0) 10/28/18 04:59 Band Neutrophils % 5.0 % 10/28/18 04:59 Lymphocytes % (Manual) 23.0 % (13.4-35.0) 10/28/18 04:59 Reactive Lymphs % (Man) 0 % 10/28/18 04:59 Monocytes % (Manual) 13.0 % (0.0-7.3) H 10/28/18 04:59 Eosinophils % (Manual) 0 % (0.0-4.3) 10/28/18 04:59 Basophils % (Manual) 0 % (0.0-1.8) 10/28/18 04:59 Metamyelocytes % 0 % 10/28/18 04:59 Myelocytes % 0 % 10/28/18 04:59 Promyelocytes % 0 % 10/28/18 04:59 Blast Cells % 0 % 10/28/18 04:59 Nucleated RBC % Not Reportable 10/28/18 04:59 Seg Neutrophils # 14.8 K/mm3 (1.8-7.7) H 10/24/18 04:36 Seg Neutrophils # Man 3.9 K/mm3 (1.8-7.7) 10/28/18 04:59 Band Neutrophils # 0.3 K/mm3 10/28/18 04:59 Lymphocytes # (Manual) 1.5 K/mm3 (1.2-5.4) 10/28/18 04:59 Abs React Lymphs (Man) 0.0 K/mm3 10/28/18 04:59 Monocytes # (Manual) 0.9 K/mm3 (0.0-0.8) H 10/28/18 04:59 Eosinophils # (Manual) 0.0 K/mm3 (0.0-0.4) 10/28/18 04:59 Basophils # (Manual) 0.0 K/mm3 (0.0-0.1) 10/28/18 04:59 Metamyelocytes # 0.0 K/mm3 10/28/18 04:59 Myelocytes # 0.0 K/mm3 10/28/18 04:59 Promyelocytes # 0.0 K/mm3 10/28/18 04:59 Blast Cells # 0.0 K/mm3 10/28/18 04:59 WBC Morphology Not Reportable 10/28/18 04:59 Hypersegmented Neuts Not Reportable 10/28/18 04:59 Hyposegmented Neuts Not Reportable 10/28/18 04:59 Hypogranular Neuts Not Reportable 10/28/18 04:59 Smudge Cells Not Reportable 10/28/18 04:59 Toxic Granulation Not Reportable 10/28/18 04:59 Toxic Vacuolation Not Reportable 10/28/18 04:59 Dohle Bodies Not Reportable 10/28/18 04:59 Pelger-Huet Anomaly Not Reportable 10/28/18 04:59 Kareen Rods Not Reportable 10/28/18 04:59 Platelet Estimate Appears normal 10/28/18 04:59 Clumped Platelets Not Reportable 10/28/18 04:59 Plt Clumps, EDTA Not Reportable 10/28/18 04:59 Large Platelets Few 10/28/18 04:59 Giant Platelets Not Reportable 10/28/18 04:59 Platelet Satelliting Not Reportable 10/28/18 04:59 Plt Morphology Comment Not Reportable 10/28/18 04:59 RBC Morphology Not Reportable 10/28/18 04:59 Dimorphic RBCs Not Reportable 10/28/18 04:59 Polychromasia 1+ 10/28/18 04:59 Hypochromasia 2+ 10/28/18 04:59 Poikilocytosis Not Reportable 10/28/18 04:59 Anisocytosis 2+ 10/28/18 04:59 Microcytosis Not Reportable 10/28/18 04:59 Macrocytosis Not Reportable 10/28/18 04:59 Spherocytes Not Reportable 10/28/18 04:59 Pappenheimer Bodies Not Reportable 10/28/18 04:59 Sickle Cells Not Reportable 10/28/18 04:59 Target Cells Not Reportable 10/28/18 04:59 Tear Drop Cells Not Reportable 10/28/18 04:59 Ovalocytes Few 10/28/18 04:59 Helmet Cells Not Reportable 10/28/18 04:59 Sepulveda-[place] Bodies Not Reportable 10/28/18 04:59 [place] Rings Not Reportable 10/28/18 04:59 [place] Cells Not Reportable 10/28/18 04:59 Bite Cells Not Reportable 10/28/18 04:59 Crenated Cell Not Reportable 10/28/18 04:59 Elliptocytes Few 10/28/18 04:59 Acanthocytes (Spur) Not Reportable 10/28/18 04:59 Rouleaux Not Reportable 10/28/18 04:59 Hemoglobin C Crystals Not Reportable 10/28/18 04:59 Schistocytes Not Reportable 10/28/18 04:59 Malaria parasites Not Reportable 10/28/18 04:59 Arian Bodies Not Reportable 10/28/18 04:59 Hem Pathologist Commnt No 10/28/18 04:59 VBG pH 7.341 (7.320-7.420) 10/23/18 18:23 Sodium 139 mmol/L (137-145) 10/28/18 04:58 Potassium 3.1 mmol/L (3.6-5.0) L 10/28/18 04:58 Chloride 101.9 mmol/L (98-107) 10/28/18 04:58 Carbon Dioxide 26 mmol/L (22-30) 10/28/18 04:58 Anion Gap 14 mmol/L 10/28/18 04:58 BUN 4 mg/dL (7-17) L 10/28/18 04:58 Creatinine 0.7 mg/dL (0.7-1.2) 10/28/18 04:58 Estimated GFR > 60 ml/min 10/28/18 04:58 BUN/Creatinine Ratio 6 % 10/28/18 04:58 Glucose 116 mg/dL (65-100) H 10/28/18 04:58 Lactic Acid 1.40 mmol/L (0.7-2.0) 10/23/18 18:23 Calcium 8.4 mg/dL (8.4-10.2) 10/28/18 04:58 Magnesium 2.10 mg/dL (1.7-2.3) 10/28/18 04:58 Total Bilirubin < 0.20 mg/dL (0.1-1.2) 10/23/18 15:55 AST 62 units/L (5-40) H 10/23/18 15:55 ALT 21 units/L (7-56) 10/23/18 15:55 Alkaline Phosphatase 90 units/L (35-129) 10/23/18 15:55 Total Protein 7.8 g/dL (6.3-8.2) 10/23/18 15:55 Albumin 3.2 g/dL (3.9-5) L 10/23/18 15:55 Albumin/Globulin Ratio 0.7 % 10/23/18 15:55 Lipase 3 units/L (13-60) L 10/23/18 15:55 HCG, Qual Negative (Negative) 10/23/18 15:55 Urine Color Gloria (Yellow) 10/23/18 16:13 Urine Turbidity Cloudy (Clear) 10/23/18 16:13 Urine pH 5.0 (5.0-7.0) 10/23/18 16:13 Ur Specific [place] 1.013 (1.003-1.030) 10/23/18 16:13 Urine Protein >500 mg/dL (Negative) 10/23/18 16:13 Urine Glucose (UA) Neg mg/dL (Negative) 10/23/18 16:13 Urine Ketones Tr mg/dL (Negative) 10/23/18 16:13 Urine Blood Sm (Negative) 10/23/18 16:13 Urine Nitrite Neg (Negative) 10/23/18 16:13 Urine Bilirubin Neg (Negative) 10/23/18 16:13 Urine Urobilinogen 2.0 mg/dL (<2.0) 10/23/18 16:13 Ur Leukocyte Esterase Lg (Negative) 10/23/18 16:13 Urine WBC (Auto) > 182.0 /HPF (0.0-6.0) H 10/23/18 16:13 Urine RBC (Auto) 49.0 /HPF (0.0-6.0) 10/23/18 16:13 U Epithel Cells (Auto) 8.0 /HPF (0-13.0) 10/23/18 16:13 Urine Bacteria (Auto) 1+ /HPF (Negative) 10/23/18 16:13 Urine WBC Clumps 3+ /HPF 10/23/18 16:13 Ur Transition Epith Cell 6 /HPF 10/23/18 16:13 Urine Mucus Few /HPF 10/23/18 16:13
--- NOTE | 2018-10-28 14:45 | Discharge Summary ---
Providers - Providers Date of Admission: 10/23/18 18:50 Attending physician: CAMILA ALFORD MD 10/26/18 09:14 Consult to Physician [CONS] Routine Comment: informed Ms Madrigal Consulting Provider: NAY REYES Physician Instructions: Reason For Exam: Gm neg sepsis/[place] pyelonephritis [facility] Condition: Stable Hospital course: 48-year-old woman who presented with fevers and flank pain. She was diagnosed with pyelonephritis, she'll also found to have Escherichia coli UTI and Escherichia coli bacteremia. She was treated with antibiotics, -She had elevated potassium upon presentation, she received Kayexalate, she later had hypokalemia that was repleted. She was counseled about tobacco cessa tion -She was treated with antibiotics, she'll complete a course of oral antibiotics upon discharge. Diagnoses Acute pyelonephritis Sepsis UTI Gram-negative sepsis/Escherichia coli bacteremia Hyperkalemia Hypokalemia Moderate malnutrition Morbid obesity Tobacco abuse, ongoing Disposition: - TO HOME OR SELFCARE Time spent for discharge: 33 mins Core Measure Documentation - Palliative Care Palliative Care/ Comfort Measures: Not Applicable - Core Measures Any of the following diagnoses?: none Exam - Constitutional Vitals: Temp Pulse Resp BP Pulse Ox 98.5 F 89 20 140/84 99 10/28/18 11:55 10/28/18 13:31 10/28/18 11:55 10/28/18 13:31 10/28/18 04:15 General appearance: Present: no acute distress, well-nourished - EENT Eyes: Present: PERRL ENT: hearing intact, clear oral mucosa - Neck Neck: Present: supple, normal ROM - Respiratory Respiratory effort: normal Respiratory: bilateral: CTA - Cardiovascular Heart Sounds: Present: S1 & S2. Absent: rub, click - Extremities Extremities: pulses symmetrical, No edema Peripheral Pulses: within normal limits - Abdominal General gastrointestinal: Present: soft, non-tender, non-distended, normal bowel sounds Female genitourinary: Present: normal - Integumentary Integumentary: Present: clear, warm, dry - Musculoskeletal Musculoskeletal: gait normal, strength equal bilaterally - Psychiatric Psychiatric: appropriate mood/affect, intact judgment & insight - Neurologic Neurologic: CNII-XII intact, moves all extremities Plan Follow up with: LAURA OLIVER MD [Primary Care Provider] - 3-5 Days Prescriptions: Cephalexin [Keflex] 500 mg PO BID 8 Days capsule RX: HYDROcodone/APAP 5-325 [[place] 5-325 mg TAB] 1 each PO Q6HR PRN #14 tablet PRN Reason: Pain
== END 2018-10-28 14:00 | disposition home or self-care (01) | DRG 872 ==
LOC: ED 14:53 → 3A 18:50
PROVIDERS: ADMIT Internal Medicine; ATTEND Internal Medicine
DX: A41.51 Sepsis due to Escherichia coli [E. coli] (principal); N10 Acute pyelonephritis; E44.0 Moderate protein-calorie malnutrition; Z68.41 Body mass index [BMI] 40.0-44.9, adult; F17.200 Nicotine dependence, unspecified, uncomplicated; E87.5 Hyperkalemia; E87.6 Hypokalemia; E66.01 Morbid (severe) obesity due to excess calories; I10 Essential (primary) hypertension; Z71.6 Tobacco abuse counseling; Z72.89 Other problems related to lifestyle; Z79.899 Other long term (current) drug therapy; Z82.49 Family history of ischemic heart disease and other diseases of the circulatory system; Z87.442 Personal history of urinary calculi
CPT/HCPCS: 36415; 74177; 76770; 80048; 80053; 81001; 82140; 82805; 83690; 83735; 84703; 85007; 85025; 87040; 87076; 87086; 87186; 93005; 93010; 99406; G0378; J0690; J0696; J1170; J1200; J1885; J2270; J2405; J7030; Q9967

== ENCOUNTER 2021-06-01 11:00 | Outpatient (CLI) | payer MEDICAID, MEDICARE | END 2021-06-01 11:01 | disposition home or self-care (01) | LOC: SLR 11:00 | PROVIDERS: ATTEND Internal Medicine | DX: G47.30 Sleep apnea, unspecified (principal) | CPT/HCPCS: 95810 ==

== ENCOUNTER 2021-07-07 11:00 | Outpatient (CLI) | payer MEDICARE | END 2021-07-07 11:01 | disposition home or self-care (01) | LOC: SLR 11:00 | PROVIDERS: ATTEND Internal Medicine | DX: G47.30 Sleep apnea, unspecified (principal); G47.33 Obstructive sleep apnea (adult) (pediatric) | CPT/HCPCS: 95811 ==